=== PATIENT | male | born 1980 | race Two or more races ===

== ENCOUNTER 2019-12-13 16:21 | Emergency (ER) | payer MEDICAID, SELFPAY ==
[~2019-12-13] VITALS: Ht 175.3 cm; Wt 127.3 kg
[2019-12-13 16:30] VITALS: BP 148/101
== END 2019-12-13 16:44 | disposition home or self-care (01) ==
LOC: ER 16:22
DX: J02.9 Acute pharyngitis, unspecified (principal); Z20.828 Contact with and (suspected) exposure to other viral communicable diseases
CPT/HCPCS: 36415; 99281

== ENCOUNTER 2021-01-30 15:40 | Inpatient (IN) | payer MEDICAID, OTHER ==
[~2021-01-30] VITALS: Ht 180.3 cm; Wt 96.8 kg
[2021-01-30 16:11] LABS: CLARITY,URINE SLIGHTLY CLOUDY (Clear); COLOR,URINE YELLOW (Yellow); GLUCOSE, URINE 100 mg/dl (Neg); KETONES,URINE TRACE mg/dl (Neg); LEUKOCYTE ESTERASE ,URINE NEGATIVE (Neg); NITRITES, URINE NEGATIVE (Neg); OCCULT BLOOD,URINE TRACE-INTACT (Neg); PH,URINE 6.5 (4.8-8.0); PROTEIN,URINE NEGATIVE (Neg); UROBILINOGEN,URINE >=8.0 E.U/dL (0.2-1.0)
[2021-01-30 16:17] LABS: UA COLLECTION TYPE VOIDED
[2021-01-30 16:17] LABS: BASOPHILS # (AUTO) 0.1 X10'3 (0-0.2); BASOPHILS % (AUTO) 0.4 % (0-1); EOSINOPHILS % (AUTO) 0 % (0-6); HEMOGLOBIN 10.3 g/dl (14.0-17.9); LYMPHOCYTES # (AUTO) 1.1 X10'3 (1.1-4.8); LYMPHOCYTES % (AUTO) 4.8 % (21-51); MEAN CORPUSCULAR HEMOGLOBIN 24.9 PG (27.0-31.0); MEAN CORPUSCULAR HGB CONC 33.3 g/dL (33.0-36.5); MEAN CORPUSCULAR VOLUME 74.8 FL (78-98); MEAN PLATELET VOLUME 7.1 FL (7.4-10.4); MONOCYTES # (AUTO) 1.1 X10'3 (0-0.9); MONOCYTES % (AUTO) 4.8 % (2-12); NEUTROPHILS # (AUTO) 20.8 X10'3 (1.8-7.7); PLATELET COUNT 514 X10'3 (140-440); RED BLOOD COUNT 4.14 X10'6 (4.70-6.10); RED CELL DISTRIBUTION WIDTH 15.2 % (11.5-14.5); WHITE BLOOD COUNT 23.1 X10'3 (4.5-11.0)
[2021-01-30 16:18] LABS: MUCUS STRANDS FEW /LPF (Neg); SQUAMOUS EPITHELIAL CELL,UR FEW /LPF (FEW)
[2021-01-30 16:20] LABS: HYALINE CASTS 0-3 /LPF (NEGATIVE)
[2021-01-30 16:21] LABS: WBC,URINE 0-4 /HPF (0-4)
[2021-01-30 16:22] LABS: ALANINE AMINOTRANSFERASE 29 U/L (12-78); ALBUMIN 2.5 G/DL (3.4-5.0); ALBUMIN/GLOBULIN RATIO 0.4 (1.1-1.5); ALKALINE PHOSPHATASE 126 IU/L (46-116); ANION GAP 10 (8-16); ASPARTATE AMINO TRANSFERASE 23 U/L (10-37); BILIRUBIN,TOTAL 0.5 MG/DL (0.1-1.0); BLOOD UREA NITROGEN 13 MG/DL (7-18); BUN/CREATININE RATIO 15.9 (5.4-32.0); CALCIUM 8.8 MG/DL (8.5-10.1); CHLORIDE 101 MMOL/L (99-107); CREATININE 0.82 MG/DL (0.60-1.10); GLUCOSE 196 MG/DL (70-104); SODIUM 137 MMOL/L (135-145); TOTAL CARBON DIOXIDE 25.6 MMOL/L (24-32); TOTAL PROTEIN 8.5 G/DL (6.4-8.2); eGFR > 90 ML/MIN
[2021-01-30 16:22] LABS: BACTERIA,URINE FEW /HPF (Neg)
[2021-01-30 16:24] LABS: TRANSITIONAL EPI CELLS,URINE FEW /HPF
[2021-01-30 16:26] LABS: POTASSIUM 2.8 MMOL/L (3.5-5.1)
[2021-01-30] MEDS ORDERED: ondansetron/PF 4mg/2ml inj IV ONE (17:15)
[2021-01-30] MEDS ORDERED: fentaNYL/PF 50MCG/1 ML 2ML syringe IV ONE (17:15)
[2021-01-30] MEDS ORDERED: diazepam inj 5 MG/ML inj. IV ONE (17:15)
[2021-01-30] MEDS ORDERED: potassium Cl 20 mEq SR tablet PO ONE (17:25)
[2021-01-30] MEDS ORDERED: potassium Cl 40 mEq/0.45% sodium chloride IV soln 520ml IV ONE (17:25)
[2021-01-30] MEDS ORDERED: iohexol 300mg/ml 100ml inj. ONE (17:30)
[2021-01-30] MEDS: potassium Cl 10 mEq/100mL bag IV SCH ×4 (17:40→22:06)
[2021-01-30] MEDS: magnesium 2GM in 50ml NS 50 ML IV SCH ×2 (17:57→20:27)
[2021-01-30] MEDS ORDERED: HYDROmorphone 1 mg/ml syringe IV PRN (18:15)
[2021-01-30] MEDS ORDERED: normal saline 1000ML IV soln IV ONE (18:25)
[2021-01-30] MEDS ORDERED: piperacillin/tazo 3.375gm/50ml 50 ML IV ONE (18:25)
[2021-01-30] MEDS ORDERED: vancomycin/NS 1 GM ADD-VANTAGE 250 ML IV ONE (18:25)
[2021-01-30] MEDS ORDERED: dexamethasone sod phosphate 10mg/ml inj IV STA (20:18)
[2021-01-30] MEDS ORDERED: magnesium Cl slow-release 64mg tablet PO PRN (21:35)
[2021-01-30] MEDS ORDERED: acetaminophen 325mg tablet PO PRN ×2 (21:35)
[2021-01-30] MEDS ORDERED: magnesium 2GM in 50ml NS 50 ML IV PRN (21:35)
[2021-01-30] MEDS ORDERED: morphine 2 MG/ML inj. syringe IV PRN (21:35)
[2021-01-30] MEDS ORDERED: potassium Cl 20 mEq SR tablet PO PRN ×2 (21:35)
[2021-01-30] MEDS ORDERED: HYDROcodone/acetaminophen 5mg/325mg tablet PO PRN (21:35)
[2021-01-30] MEDS ORDERED: potassium CL 10mEq/100ml bag 100 ML IV PRN (21:35)
[2021-01-30] MEDS ORDERED: HYDROmorphone/PF 0.2 MG/ML SYRINGE IV PRN (21:35)
[2021-01-30] MEDS ORDERED: ondansetron/PF 4mg/2ml inj IV PRN (21:35)
[2021-01-30] MEDS ORDERED: magnesium 4gm in 100ml NS 100 ML IV PRN (21:35)
[2021-01-30 21:49] LABS: HEMOGLOBIN A1C 6.7 % (4.5-6.2)
[2021-01-30] MEDS ORDERED: dextrose 50%-water 50ml dispensing syringe IV PRN ×2 (22:15)
[2021-01-30] MEDS ORDERED: MESSAGE TO PHARMACY PO ONE (22:15)
[2021-01-30] MEDS ORDERED: vancomycin/NS 1 GM ADD-VANTAGE 250 ML X 1 DOSE IV ONE (22:15)
[2021-01-30] MEDS ORDERED: glucagon, human recombinant 1mg kit SUBCUT PRN (22:15)
[2021-01-30] MEDS ORDERED: dextrose ORAL solution 15 GM/59 ML bottle PO PRN ×2 (22:15)
--- NOTE | 2021-01-30 22:40 | NUR ---
Patient in ER bed 2. I have received report from Len SMITH and had the opportunity to ask questions and assume patient care.
[2021-01-30 22:48] LABS: CHOL/HDL RATIO 6.1 (0.00-4.99); CHOLESTEROL 129 MG/DL (0-200); HDL CHOLESTEROL 21 MG/DL (35-60); LDL CHOLESTEROL 91 MG/DL (50-100); TRIGLYCERIDES 72 MG/DL (20-135)
[2021-01-30 23:00] VITALS: BP 130/73
[2021-01-30 23:21] LABS: POTASSIUM 3.7 MMOL/L (3.5-5.1)
[2021-01-30] MEDS: normal saline 1000ml 1,000 ML IV SCH (23:46)
[2021-01-31] VITALS (26 sets, daily range): BP systolic 114–152; BP diastolic 55–88
[2021-01-31] MEDS ORDERED: dexamethasone 4mg/ml inj IV SCH
[2021-01-31] MEDS: morphine 2 MG/ML inj. syringe IV PRN ×2 (00:07→21:02)
[2021-01-31] MEDS ORDERED: NO HOME MEDS (00:46)
[2021-01-31] MEDS: dexamethasone inj 6 MG in normal saline 50ml IV soln 50 ML IV SCH ×3 (01:37→19:20)
[2021-01-31] MEDS: heparin, porcine 5000 units/ml vial SQ SCH ×3 (01:37→19:20)
[2021-01-31] MEDS: piperacillin/tazo 3.375gm/50ml 50 ML IV SCH ×3 (02:08→19:20)
--- NOTE | 2021-01-31 06:40 | NUR ---
Problems reprioritized. Patient report given, questions answered & plan of care reviewed with Katrina SMITH.
--- NOTE | 2021-01-31 06:46 | NUR ---
Patient in room ORTHO 4017. I have received report from LUIS VO and had the opportunity to ask questions and assume patient care.
[2021-01-31] MEDS: pantoprazole 40mg Tablet.DR PO SCH (07:13)
[2021-01-31] MEDS: vancomycin/NS 1 GM ADD-VANTAGE 250 ML IV SCH ×3 (07:16→22:39)
[2021-01-31 07:24] LABS: BASOPHILS % (AUTO) 0 % (0-1); EOSINOPHILS % (AUTO) 0 % (0-6); HEMATOCRIT 29.3 % (42.0-52.0); HEMOGLOBIN 9.8 g/dl (14.0-17.9); LYMPHOCYTES # (AUTO) 0.7 X10'3 (1.1-4.8); LYMPHOCYTES % (AUTO) 3.3 % (21-51); MEAN CORPUSCULAR HEMOGLOBIN 25.2 PG (27.0-31.0); MEAN CORPUSCULAR HGB CONC 33.4 g/dL (33.0-36.5); MEAN CORPUSCULAR VOLUME 75.4 FL (78-98); MEAN PLATELET VOLUME 7.2 FL (7.4-10.4); MONOCYTES # (AUTO) 0.5 X10'3 (0-0.9); MONOCYTES % (AUTO) 2.3 % (2-12); NEUTROPHILS # (AUTO) 19.8 X10'3 (1.8-7.7); NEUTROPHILS % (AUTO) 94.4 % (42-75); PLATELET COUNT 461 X10'3 (140-440); RED BLOOD COUNT 3.89 X10'6 (4.70-6.10); RED CELL DISTRIBUTION WIDTH 15.4 % (11.5-14.5)
[2021-01-31] MEDS: normal saline 1000ml 1,000 ML IV SCH ×2 (07:35→21:02)
[2021-01-31 07:49] LABS: ALANINE AMINOTRANSFERASE 24 U/L (12-78); ALBUMIN 2.1 G/DL (3.4-5.0); ALBUMIN/GLOBULIN RATIO 0.4 (1.1-1.5); ALKALINE PHOSPHATASE 106 IU/L (46-116); ANION GAP 7 (8-16); ASPARTATE AMINO TRANSFERASE 19 U/L (10-37); BILIRUBIN,TOTAL 0.4 MG/DL (0.1-1.0); BLOOD UREA NITROGEN 14 MG/DL (7-18); BUN/CREATININE RATIO 17.5 (5.4-32.0); CALCIUM 9.1 MG/DL (8.5-10.1); CHLORIDE 103 MMOL/L (99-107); GLUCOSE 201 MG/DL (70-104); POTASSIUM 4.1 MMOL/L (3.5-5.1); SODIUM 136 MMOL/L (135-145); TOTAL CARBON DIOXIDE 26.2 MMOL/L (24-32); TOTAL PROTEIN 7.8 G/DL (6.4-8.2); eGFR > 90 ML/MIN
[2021-01-31] MEDS: K and/or MAG REPLACEMENT MC SCH ×2 (08:00→20:00)
--- NOTE | 2021-01-31 11:30 | NUR ---
pt left floor to go to IR in stable condition
[2021-01-31] MEDS ORDERED: fentaNYL/PF 50MCG/1 ML 2ML syringe ONE ×4 (11:32→18:08)
--- NOTE | 2021-01-31 11:56 | NUR ---
Malnutrition/DM Consults: Pt admit w/ increasing back pain 4 days [employer]ICAL [employer] DX COVID-19, new onset DM A1C 6.7%, sepsis, rectal CA w/ mets to liver/lungs, multiple pelvic abscesses, sigmoid diverticula, and bowel perforation per MD note. Pt NPO for OR this AM pending colostomy per EMR. Pt reports 14-23 pound wt loss past 3 months w/ decreased appetite past week per RN Malnutrition Screen this admit. Possible decreased PO intake given DX this admit and hx pain MEDICAL DEVICE SALES however pt has normal strength, no edema, appears WD/WN per ER note, and current scaled wt no significant loss compared to last December ER visit wt in EMR. Pt lacks minimum malnutrition criteria at this time. LBM 01/30 per EMR. Pt would benefit from DM/Colostomy diet eds once more appropriate post-op. Will monitor for diet advancement post-op and further nutrition intervention needs this admit. Rec: 1. advance diet as medically indicated post-op to low-residue 2. If prolonged intubation post-op; consider EN to optimize nutrition status IF functional colostomy per surgeon discretion 3. weekly wts 4. bowel care per MD post-op 5. DM/Colostomy diet eds once appropriate prior to discharge following pt aware of new DM DX by physician A1C 6.7% Addendum: 01/31/21 at [address] Amended: Links added.
[2021-01-31] MEDS ORDERED: midazolam 1 mg/ML 2ml injection ONE (12:05)
[2021-01-31] MEDS ORDERED: BUPIVAcaine/PF 2.5 mg/ml (0.25%) 30ml vial ONE (12:34)
[2021-01-31] MEDS ORDERED: LIDOCAINE 1%/EPI 1:100,000 inj. 10 ML multi-dose vial ONE (12:35)
[2021-01-31] MEDS ORDERED: CefTRIAXone 2gm/D5W 50ml IV ONE (12:45)
[2021-01-31] MEDS ORDERED: metroNIDAZOLE-Flagyl 500mg/NS 100ml IVPB IV ONE (12:45)
--- NOTE | 2021-01-31 12:49 | NUR ---
pt back from IR in stable condition with left lower abd AMARJIT drain
[2021-01-31] MEDS ORDERED: morphine 4 MG/ML inj SYRINge IV PRN (13:20)
[2021-01-31] MEDS ORDERED: labetalol 20mg/4ml (5mg/ml) syringe IV PRN (13:20)
[2021-01-31] MEDS ORDERED: ringers solution, lacted 1,000 ML IV SCH (13:20)
[2021-01-31] MEDS ORDERED: hydrALAZINE 20mg/ml inj. IV PRN (13:20)
[2021-01-31] MEDS ORDERED: fentaNYL/PF 50MCG/1 ML 2ML syringe IV PRN ×2 (13:20)
[2021-01-31] MEDS ORDERED: ondansetron/PF 4mg/2ml inj IV PRN (13:20)
[2021-01-31] MEDS ORDERED: morphine 2 MG/ML inj. syringe IV PRN (13:20)
[2021-01-31] MEDS ORDERED: propofol inj 20 ML IV ONE (13:26)
[2021-01-31] MEDS ORDERED: dexamethasone sod phosphate 4mg/ml inj. ONE (13:26)
[2021-01-31] MEDS ORDERED: neostigmine methylsulfate 1 MG/ML 10ml vial ONE (13:29)
[2021-01-31] MEDS ORDERED: glycopyrrolate 0.2mg/ml inj ONE (13:29)
[2021-01-31] MEDS ORDERED: rocuronium 10mg/ml inj IV ONE ×3 (13:29)
[2021-01-31] MEDS ORDERED: ondansetron/PF 4mg/2ml inj ONE (13:31)
[2021-01-31] MEDS ORDERED: MIDAZolam 1 MG/ML 5ML VIAL ONE (13:32)
[2021-01-31] MEDS ORDERED: sugammadex 200mg/2ml injection IV ONE (14:13)
--- NOTE | 2021-01-31 17:10 | NUR ---
PT RECOVERED IN OR D/T +MIHIR, DR CISSE PRESENT-REPORT GIVEN, VSS, PT DENIES PAIN AT PRESENT, NOTED TO ABDIRASHID CT PLACED AMARJIT DRAIN TO LLQ WITH PURULENT DRAINAGE NOTED, AMARJIT RLQ WITH BRIGHT RED DRAINAGE, COLOSTOMY BAG OVER STOMA LEFT OF MIDLINE-SMALL AMOUNT OF BLOOD IN BAG, F/C PRESENT PLACED IN OR, SCDS ON, PICC TO RUE, 18G PIV TO BUE.
[2021-01-31] MEDS ORDERED: morphine 4 MG/ML inj SYRINge ONE (17:48)
--- NOTE | 2021-01-31 18:26 | NUR ---
Problems reprioritized. Patient report given, questions answered & plan of care reviewed with LUIS Burgess.
--- NOTE | 2021-01-31 18:30 | NUR ---
PT GIVEN MORPHINE AND FENTANYL PER ORDER-MEDS PULLED BY NUCLEAR UNIT OPERATOR VANDA FROM OR SUPPLY, PT PAIN DROPPED FROM 8 TO 5/10 WITH PAIN MOSTLY BEING WHEN PT TRIED TO CLEAR THROAT/COUGH-EDUCATED ON NEED TO SPLINT WITH PILLOW, AMARJIT'S EMPTIED(LEFT 40CC, RIGHT 30CC), NO CHANGES IN ASSESSMENT FROM PRIOR NOTE, REPORT CALLED TO GILDA IN COVID UNIT-ALL QUESTIONS ANSWERED, PT TAKEN VIA BED PER ISOLATION STANDARDS BACK TO ROOM 4017, PRIMARY RN IN ROOM TO RECEIVE PT.
--- NOTE | 2021-01-31 18:44 | NUR ---
Patient in room ORTHO 4017. I have received report from Katrina SMITH and had the opportunity to ask questions and assume patient care.
--- NOTE | 2021-01-31 19:00 | NUR ---
Report received from Monserrat BAILEY RN. Pt arrived via bed in no apparent distress. Post op vitals started. Pt is on 2L NC at 96%. Will continue to monitor.
--- NOTE | 2021-01-31 19:21 | NUR ---
Spoke with keegan Matthews to non admin the dose of Rocephin and flagyl that he ordered for 1245. Also non admin the medications that were due while he was in the OR.
[2021-01-31] MEDS: insulin glargine (Lantus) pen - multi-dose SQ SCH (21:00)
[2021-01-31] MEDS ORDERED: VANCOMYCIN LEVEL IV ONE (21:30)
[2021-01-31] MEDS: HYDROmorphone inj. 0.5 MG/0.5 ML DISP.SYRIN IV PRN (23:04)
[2021-02-01] MEDS: dexamethasone inj 6 MG in normal saline 50ml IV soln 50 ML IV SCH ×3 (01:12→17:32)
[2021-02-01] MEDS: heparin, porcine 5000 units/ml vial SQ SCH ×3 (01:13→17:31)
[2021-02-01 02:00] VITALS: BP 108/60
[2021-02-01] MEDS: piperacillin/tazo 3.375gm/50ml 50 ML IV SCH ×3 (02:02→17:32)
[2021-02-01] MEDS: normal saline 1000ml 1,000 ML IV SCH ×3 (05:23→23:35)
[2021-02-01] MEDS: vancomycin/NS 1 GM ADD-VANTAGE 250 ML IV SCH (05:26)
[2021-02-01] MEDS: HYDROmorphone inj. 0.5 MG/0.5 ML DISP.SYRIN IV PRN ×3 (05:27→19:59)
[2021-02-01 06:00] VITALS: BP 115/63
--- NOTE | 2021-02-01 06:33 | NUR ---
Problems reprioritized. Patient report given, questions answered & plan of care reviewed with Katrina SMITH.
--- NOTE | 2021-02-01 06:48 | NUR ---
Patient in room ORTHO 4017. I have received report from LUIS Burgess and had the opportunity to ask questions and assume patient care.
[2021-02-01] MEDS: pantoprazole 40mg Tablet.DR PO SCH (07:51)
[2021-02-01] MEDS: K and/or MAG REPLACEMENT MC SCH ×2 (08:00→19:22)
[2021-02-01 08:05] LABS: BASOPHILS % (AUTO) 0 % (0-1); EOSINOPHILS % (AUTO) 0 % (0-6); HEMATOCRIT 29.4 % (42.0-52.0); HEMOGLOBIN 9.3 g/dl (14.0-17.9); LYMPHOCYTES # (AUTO) 0.6 X10'3 (1.1-4.8); LYMPHOCYTES % (AUTO) 2.9 % (21-51); MEAN CORPUSCULAR HEMOGLOBIN 24.4 PG (27.0-31.0); MEAN CORPUSCULAR HGB CONC 31.7 g/dL (33.0-36.5); MEAN CORPUSCULAR VOLUME 76.8 FL (78-98); MEAN PLATELET VOLUME 7.5 FL (7.4-10.4); MONOCYTES # (AUTO) 0.5 X10'3 (0-0.9); MONOCYTES % (AUTO) 2.3 % (2-12); NEUTROPHILS # (AUTO) 19.2 X10'3 (1.8-7.7); NEUTROPHILS % (AUTO) 94.8 % (42-75); PLATELET COUNT 485 X10'3 (140-440); RED BLOOD COUNT 3.83 X10'6 (4.70-6.10); RED CELL DISTRIBUTION WIDTH 15.7 % (11.5-14.5); WHITE BLOOD COUNT 20.3 X10'3 (4.5-11.0)
[2021-02-01 08:23] LABS: ALANINE AMINOTRANSFERASE 19 U/L (12-78); ALBUMIN 1.8 G/DL (3.4-5.0); ALBUMIN/GLOBULIN RATIO 0.3 (1.1-1.5); ALKALINE PHOSPHATASE 95 IU/L (46-116); ANION GAP 7 (8-16); ASPARTATE AMINO TRANSFERASE 14 U/L (10-37); BILIRUBIN,TOTAL 0.4 MG/DL (0.1-1.0); BLOOD UREA NITROGEN 21 MG/DL (7-18); BUN/CREATININE RATIO 28.8 (5.4-32.0); CALCIUM 8.8 MG/DL (8.5-10.1); CHLORIDE 106 MMOL/L (99-107); CREATININE 0.73 MG/DL (0.60-1.10); GLUCOSE 173 MG/DL (70-104); SODIUM 139 MMOL/L (135-145); TOTAL CARBON DIOXIDE 26.1 MMOL/L (24-32); TOTAL PROTEIN 7.2 G/DL (6.4-8.2); eGFR > 90 ML/MIN
[2021-02-01 10:00] VITALS: BP 102/66
[2021-02-01 10:04] LABS: C-REACTIVE PROTEIN 23.28 MG/DL (0.0-0.5)
[2021-02-01] MEDS: insulin Lispro (HumaLOG) vial - multi-dose SQ SCH ×3 (10:26→18:56)
[2021-02-01 14:00] VITALS: BP 107/67
--- NOTE | 2021-02-01 14:42 | NUR ---
Pt was educated on emptying bag, cutting and applying bag, measuring stoma, rolling back Formaflex bags, 2 piece bags, 1 piece bags, basic ostomy care and bag change. He was attentive to teaching and verbalized understanding but will need reinforcement. He was give various written education as well. Addendum: 02/01/21 at 1442 by Ana María Muhammad RN Amended: Links added.
--- NOTE | 2021-02-01 14:48 | NUR ---
TPN consult: Pt s/p laparoscopic diverting colostomy, drainage of pelvic abscess, liver biopsy, and sigmoidoscopy 01/31. Pt to begin TPN per MD, already with a PICC in place per EMR. TPN recommendations below have been d/w clinical pharmacist. Of note pt also on a full liquid diet. Will continue to follow and monitor trends in PO intake and adjust TPN recommendations as appropriate. Recommendations: 1. Advance to low fiber diet as medically indicated 2. Continuous TPN per MD using 2:1 Clinimix-E 06/29 with 108 mL/hr goal with additional 100 mL 20% intralipids to run at 8.33 mL/hr for 12 hrs/day. In total to provide 2692 mL total volume/day, 2481 kcal, 130 g protein, and 518 g dext (3.00 mg/kg/min dext load) 3. Prealbumin and TG q Friday/ 4. Daily scaled weights 5. Consider transitioning to EN IF able to use GI tract per surgeon discretion 6. Bowel care per MD post-op 7. DM/Colostomy nutrition therapy educations once appropriate prior to discharge following pt aware of new DM DX by physician A1C 6.7% Addendum: 02/01/21 at [address] Amended: Links added.
[2021-02-01] MEDS: VANCOmycin 1250MG/NS 250ml Bag 250 ML IV SCH ×2 (15:09→21:47)
[2021-02-01] MEDS: HYDROcodone/acetaminophen 10/325mg tab PO PRN (15:11)
[2021-02-01] MEDS ORDERED: Dextrose 10%-water IV solution 1,000 ML IV PRN (15:20)
[2021-02-01 16:24] LABS: MAGNESIUM 2.4 MG/DL (1.5-2.4); PHOSPHORUS 3.9 MG/DL (2.3-4.5)
[2021-02-01 18:00] VITALS: BP 121/76
--- NOTE | 2021-02-01 18:31 | NUR ---
Problems reprioritized. Patient report given, questions answered & plan of care reviewed with LUIS RUTH.
--- NOTE | 2021-02-01 18:37 | NUR ---
Patient in room ORTHO 4017. I have received report from LUIS BRADEN and had the opportunity to ask questions and assume patient care.
[2021-02-01 18:45] LABS: PREALBUMIN 6.4 MG/DL (19-36)
[2021-02-01] MEDS: fat emulsion 20% inj. 100 ML IV SCH (19:53)
[2021-02-01] MEDS ORDERED: ZINC/COPPER/MANGANESE/SELENIUM 0.5 ML, chromic chloride inj. 5 MCG in AA 5%/CALCIUM/LYT... IV SCH ×6 (20:00)
[2021-02-01] MEDS: insulin glargine (Lantus) pen - multi-dose SQ SCH (20:52)
[2021-02-01 22:00] VITALS: BP 119/82
[2021-02-02] MEDS: dexamethasone inj 6 MG in normal saline 50ml IV soln 50 ML IV SCH ×4 (00:01→23:35)
[2021-02-02] MEDS: piperacillin/tazo 3.375gm/50ml 50 ML IV SCH ×3 (00:02→17:26)
[2021-02-02] MEDS: heparin, porcine 5000 units/ml vial SQ SCH ×4 (00:02→23:34)
[2021-02-02] MEDS: HYDROcodone/acetaminophen 10/325mg tab PO PRN ×4 (00:08→23:34)
[2021-02-02 02:00] VITALS: BP 105/64
[2021-02-02] MEDS: insulin regular, human U-100 3ml vial - multi-dose SQ SCH ×4 (02:12→20:14)
[2021-02-02] MEDS: normal saline 1000ml 1,000 ML IV SCH ×2 (05:35→23:34)
[2021-02-02] MEDS: HYDROmorphone inj. 0.5 MG/0.5 ML DISP.SYRIN IV PRN ×2 (05:36→17:25)
[2021-02-02] MEDS: VANCOmycin 1250MG/NS 250ml Bag 250 ML IV SCH ×2 (05:36→14:31)
[2021-02-02 06:00] VITALS: BP 113/67
--- NOTE | 2021-02-02 06:28 | NUR ---
Problems reprioritized. Patient report given, questions answered & plan of care reviewed with LUIS Herndon.
--- NOTE | 2021-02-02 06:35 | NUR ---
Patient in room ORTHO 4017. I have received report from LUIS Jacinto and had the opportunity to ask questions and assume patient care.
[2021-02-02] MEDS: K and/or MAG REPLACEMENT MC SCH ×2 (08:00→20:00)
[2021-02-02] MEDS: pantoprazole 40mg Tablet.DR PO SCH (08:22)
[2021-02-02 09:10] LABS: BASOPHILS % (AUTO) 0.1 % (0-1); EOSINOPHILS % (AUTO) 0 % (0-6); HEMATOCRIT 28.8 % (42.0-52.0); HEMOGLOBIN 9.2 g/dl (14.0-17.9); LYMPHOCYTES # (AUTO) 0.9 X10'3 (1.1-4.8); LYMPHOCYTES % (AUTO) 6.4 % (21-51); MEAN CORPUSCULAR HEMOGLOBIN 24.6 PG (27.0-31.0); MEAN CORPUSCULAR VOLUME 76.8 FL (78-98); MEAN PLATELET VOLUME 7.7 FL (7.4-10.4); MONOCYTES # (AUTO) 0.6 X10'3 (0-0.9); MONOCYTES % (AUTO) 4.5 % (2-12); PLATELET COUNT 433 X10'3 (140-440); RED BLOOD COUNT 3.74 X10'6 (4.70-6.10); RED CELL DISTRIBUTION WIDTH 15.8 % (11.5-14.5); WHITE BLOOD COUNT 13.5 X10'3 (4.5-11.0)
[2021-02-02 09:29] LABS: ALANINE AMINOTRANSFERASE 21 U/L (12-78); ALBUMIN 1.8 G/DL (3.4-5.0); ALBUMIN/GLOBULIN RATIO 0.3 (1.1-1.5); ALKALINE PHOSPHATASE 89 IU/L (46-116); ANION GAP 4 (8-16); ASPARTATE AMINO TRANSFERASE 13 U/L (10-37); BILIRUBIN,TOTAL 0.2 MG/DL (0.1-1.0); BLOOD UREA NITROGEN 20 MG/DL (7-18); C-REACTIVE PROTEIN 14.03 MG/DL (0.0-0.5); CALCIUM 8.6 MG/DL (8.5-10.1); CHLORIDE 105 MMOL/L (99-107); CREATININE 0.69 MG/DL (0.60-1.10); GLUCOSE 164 MG/DL (70-104); MAGNESIUM 2.4 MG/DL (1.5-2.4); PHOSPHORUS 4.1 MG/DL (2.3-4.5); POTASSIUM 4.2 MMOL/L (3.5-5.1); SODIUM 138 MMOL/L (135-145); TOTAL CARBON DIOXIDE 28.7 MMOL/L (24-32); TOTAL PROTEIN 7.2 G/DL (6.4-8.2); eGFR > 90 ML/MIN
[2021-02-02 10:00] VITALS: BP 113/69
[2021-02-02] MEDS: MVI, adult No.4 with vit. K 10 ML in dextrose 5% water 500ml 500 ML IV SCH ×2 (10:14)
[2021-02-02] MEDS ORDERED: VANCOMYCIN LEVEL IV ONE (13:30)
[2021-02-02] MEDS: polyethylene glycol 3350 17gm powd pack PO SCH ×3 (13:56→20:10)
[2021-02-02 14:00] VITALS: BP 120/69
[2021-02-02] MEDS: ZINC/COPPER/MANGANESE/SELENIUM 0.5 ML, chromic chloride inj. 5 MCG in AA 5%/CALCIUM/LYT... IV SCH ×2 (14:55→23:37)
[2021-02-02] MEDS ORDERED: ZINC/COPPER/MANGANESE/SELENIUM 0.5 ML, chromic chloride inj. 5 MCG in AA 5%/CALCIUM/LYT... IV SCH (17:00)
[2021-02-02 18:00] VITALS: BP 116/59
--- NOTE | 2021-02-02 18:40 | NUR ---
Patient in room ORTHO 4017. I have received report from LUIS Herndon and had the opportunity to ask questions and assume patient care.
--- NOTE | 2021-02-02 18:41 | NUR ---
Problems reprioritized. Patient report given, questions answered & plan of care reviewed with LUIS RUTH.
[2021-02-02] MEDS: levoFLOXACIN-Levaquin 500mg/D5 100 ML IV SCH (19:35)
[2021-02-02] MEDS: fat emulsion 20% inj. 100 ML IV SCH (20:09)
[2021-02-02] MEDS: lactobacillus rhamnosus 10,000 MMU CELLS/CAPSULE PO SCH (20:10)
[2021-02-02] MEDS: insulin glargine (Lantus) pen - multi-dose SQ SCH (21:20)
[2021-02-02 22:00] VITALS: BP 119/65
[2021-02-03 02:00] VITALS: BP 118/69
[2021-02-03] MEDS: insulin regular, human U-100 3ml vial - multi-dose SQ SCH ×4 (02:09→20:13)
[2021-02-03] MEDS: HYDROmorphone inj. 0.5 MG/0.5 ML DISP.SYRIN IV PRN ×2 (05:11→23:28)
[2021-02-03 05:32] LABS: BASOPHILS % (AUTO) 0.1 % (0-1); EOSINOPHILS % (AUTO) 0 % (0-6); HEMATOCRIT 30.4 % (42.0-52.0); HEMOGLOBIN 9.7 g/dl (14.0-17.9); LYMPHOCYTES # (AUTO) 0.8 X10'3 (1.1-4.8); LYMPHOCYTES % (AUTO) 6.3 % (21-51); MEAN CORPUSCULAR HEMOGLOBIN 24.5 PG (27.0-31.0); MEAN CORPUSCULAR VOLUME 76.7 FL (78-98); MEAN PLATELET VOLUME 7.4 FL (7.4-10.4); MONOCYTES # (AUTO) 0.6 X10'3 (0-0.9); MONOCYTES % (AUTO) 4.8 % (2-12); NEUTROPHILS # (AUTO) 11.8 X10'3 (1.8-7.7); NEUTROPHILS % (AUTO) 88.8 % (42-75); PLATELET COUNT 426 X10'3 (140-440); RED BLOOD COUNT 3.97 X10'6 (4.70-6.10); RED CELL DISTRIBUTION WIDTH 15.3 % (11.5-14.5); WHITE BLOOD COUNT 13.3 X10'3 (4.5-11.0)
[2021-02-03] MEDS: normal saline 1000ml 1,000 ML IV SCH ×3 (05:35→21:16)
[2021-02-03 05:46] LABS: ALANINE AMINOTRANSFERASE 31 U/L (12-78); ALBUMIN 1.9 G/DL (3.4-5.0); ALBUMIN/GLOBULIN RATIO 0.4 (1.1-1.5); ALKALINE PHOSPHATASE 91 IU/L (46-116); ANION GAP 6 (8-16); ASPARTATE AMINO TRANSFERASE 22 U/L (10-37); BILIRUBIN,TOTAL 0.2 MG/DL (0.1-1.0); BLOOD UREA NITROGEN 16 MG/DL (7-18); BUN/CREATININE RATIO 25.4 (5.4-32.0); C-REACTIVE PROTEIN 7.53 MG/DL (0.0-0.5); CALCIUM 9.2 MG/DL (8.5-10.1); CHLORIDE 106 MMOL/L (99-107); CREATININE 0.63 MG/DL (0.60-1.10); GLUCOSE 168 MG/DL (70-104); MAGNESIUM 2.2 MG/DL (1.5-2.4); PHOSPHORUS 3.9 MG/DL (2.3-4.5); POTASSIUM 4.2 MMOL/L (3.5-5.1); SODIUM 141 MMOL/L (135-145); TOTAL CARBON DIOXIDE 28.7 MMOL/L (24-32); TOTAL PROTEIN 7.2 G/DL (6.4-8.2); eGFR > 90 ML/MIN
--- NOTE | 2021-02-03 06:24 | NUR ---
Problems reprioritized. Patient report given, questions answered & plan of care reviewed with LUIS Blanco.
--- NOTE | 2021-02-03 06:31 | NUR ---
Patient in room ORTHO 4017. I have received report from Ophelia SMITH and had the opportunity to ask questions and assume patient care.
[2021-02-03 06:32] VITALS: BP 125/72
[2021-02-03] MEDS: dexamethasone inj 6 MG in normal saline 50ml IV soln 50 ML IV SCH ×3 (07:16→23:29)
[2021-02-03] MEDS: levoFLOXACIN-Levaquin 500mg/D5 100 ML IV SCH (07:16)
[2021-02-03] MEDS: K and/or MAG REPLACEMENT MC SCH ×2 (08:00→19:10)
[2021-02-03] MEDS: lactobacillus rhamnosus 10,000 MMU CELLS/CAPSULE PO SCH ×2 (08:01→20:03)
[2021-02-03] MEDS: heparin, porcine 5000 units/ml vial SQ SCH ×3 (08:01→23:28)
[2021-02-03] MEDS: polyethylene glycol 3350 17gm powd pack PO SCH ×4 (08:01→20:03)
[2021-02-03] MEDS: pantoprazole 40mg Tablet.DR PO SCH (08:01)
[2021-02-03] MEDS: HYDROcodone/acetaminophen 10/325mg tab PO PRN ×3 (09:23→19:04)
[2021-02-03] MEDS: ZINC/COPPER/MANGANESE/SELENIUM 0.5 ML, chromic chloride inj. 5 MCG in AA 5%/CALCIUM/LYT... IV SCH ×2 (10:05→20:03)
[2021-02-03 10:53] VITALS: BP 141/78
[2021-02-03 14:12] VITALS: BP 130/83
[2021-02-03 18:00] VITALS: BP 141/75
--- NOTE | 2021-02-03 18:18 | NUR ---
Patient in room ORTHO 4017. I have received report from Ophelia SMITH and had the opportunity to ask questions and assume patient care.
--- NOTE | 2021-02-03 18:24 | NUR ---
Patient in room ORTHO 4017. I have received report from LUIS Blanco and had the opportunity to ask questions and assume patient care.
[2021-02-03] MEDS: fat emulsion 20% inj. 100 ML IV SCH (20:03)
[2021-02-03] MEDS: insulin glargine (Lantus) pen - multi-dose SQ SCH (21:10)
[2021-02-03] MEDS ORDERED: VANCOMYCIN LEVEL IV ONE (21:30)
[2021-02-03 22:00] VITALS: BP 128/66
[2021-02-04 02:00] VITALS: BP 125/66
[2021-02-04] MEDS: insulin regular, human U-100 3ml vial - multi-dose SQ SCH ×4 (02:09→20:24)
[2021-02-04] MEDS: HYDROcodone/acetaminophen 10/325mg tab PO PRN ×3 (02:19→23:20)
[2021-02-04] MEDS: ZINC/COPPER/MANGANESE/SELENIUM 0.5 ML, chromic chloride inj. 5 MCG in AA 5%/CALCIUM/LYT... IV SCH ×3 (05:15→23:19)
[2021-02-04] MEDS: HYDROmorphone inj. 0.5 MG/0.5 ML DISP.SYRIN IV PRN ×3 (05:48→22:09)
[2021-02-04 06:00] VITALS: BP 135/80
--- NOTE | 2021-02-04 06:48 | NUR ---
Problems reprioritized. Patient report given, questions answered & plan of care reviewed with LUIS Holland.
[2021-02-04 07:13] LABS: BASOPHILS % (AUTO) 0.2 % (0-1); EOSINOPHILS % (AUTO) 0.1 % (0-6); HEMATOCRIT 34.5 % (42.0-52.0); HEMOGLOBIN 11.2 g/dl (14.0-17.9); LYMPHOCYTES # (AUTO) 1.3 X10'3 (1.1-4.8); LYMPHOCYTES % (AUTO) 7.1 % (21-51); MEAN CORPUSCULAR HEMOGLOBIN 24.9 PG (27.0-31.0); MEAN CORPUSCULAR HGB CONC 32.4 g/dL (33.0-36.5); MEAN CORPUSCULAR VOLUME 77.1 FL (78-98); MEAN PLATELET VOLUME 7.5 FL (7.4-10.4); MONOCYTES # (AUTO) 0.8 X10'3 (0-0.9); MONOCYTES % (AUTO) 4.4 % (2-12); NEUTROPHILS # (AUTO) 16.7 X10'3 (1.8-7.7); NEUTROPHILS % (AUTO) 88.2 % (42-75); PLATELET COUNT 546 X10'3 (140-440); RED BLOOD COUNT 4.47 X10'6 (4.70-6.10); RED CELL DISTRIBUTION WIDTH 15.4 % (11.5-14.5); WHITE BLOOD COUNT 18.9 X10'3 (4.5-11.0)
[2021-02-04 07:16] LABS: ALANINE AMINOTRANSFERASE 56 U/L (12-78); ALBUMIN/GLOBULIN RATIO 0.4 (1.1-1.5); ALKALINE PHOSPHATASE 102 IU/L (46-116); ANION GAP 8 (8-16); ASPARTATE AMINO TRANSFERASE 33 U/L (10-37); BILIRUBIN,TOTAL 0.2 MG/DL (0.1-1.0); BLOOD UREA NITROGEN 17 MG/DL (7-18); BUN/CREATININE RATIO 26.6 (5.4-32.0); C-REACTIVE PROTEIN 3.48 MG/DL (0.0-0.5); CALCIUM 9.3 MG/DL (8.5-10.1); CHLORIDE 103 MMOL/L (99-107); CREATININE 0.64 MG/DL (0.60-1.10); GLUCOSE 198 MG/DL (70-104); PHOSPHORUS 4.1 MG/DL (2.3-4.5); POTASSIUM 3.9 MMOL/L (3.5-5.1); SODIUM 140 MMOL/L (135-145); TOTAL CARBON DIOXIDE 28.9 MMOL/L (24-32); TOTAL PROTEIN 7.4 G/DL (6.4-8.2); eGFR > 90 ML/MIN
[2021-02-04] MEDS: K and/or MAG REPLACEMENT MC SCH ×2 (08:00→20:00)
[2021-02-04] MEDS: heparin, porcine 5000 units/ml vial SQ SCH ×2 (08:05→16:57)
[2021-02-04] MEDS: polyethylene glycol 3350 17gm powd pack PO SCH ×4 (08:05→20:34)
[2021-02-04] MEDS: lactobacillus rhamnosus 10,000 MMU CELLS/CAPSULE PO SCH ×2 (08:05→20:33)
[2021-02-04] MEDS: pantoprazole 40mg Tablet.DR PO SCH (08:05)
[2021-02-04] MEDS: levoFLOXACIN-Levaquin 500mg/D5 100 ML IV SCH (08:06)
[2021-02-04] MEDS: dexamethasone inj 6 MG in normal saline 50ml IV soln 50 ML IV SCH (08:06)
[2021-02-04 10:00] VITALS: BP 128/73
[2021-02-04 10:29] LABS: NUCLEATED RED BLOOD CELLS 1 /100WBC (0-0); TOTAL CELLS COUNTED 100
[2021-02-04 10:31] LABS: HYPOCHROMASIA 1+; MICROCYTOSIS 1+; PLATELET ESTIMATE INCREASED; POIKILOCYTOSIS FEW; POLYCHROMASIA FEW
[2021-02-04] MEDS: normal saline 1000ml 1,000 ML IV SCH ×2 (11:35→21:28)
[2021-02-04] MEDS ORDERED: diatr meglu/diatrizoate 30ml oral sol.-(3 dose) bottle PO SCH (12:00)
[2021-02-04] MEDS: metroNIDAZOLE 500mg tablet PO SCH ×2 (12:03→20:34)
--- NOTE | 2021-02-04 12:18 | NUR ---
PAGER ID: [phone] MESSAGE: [phone]. CT rescheduled CT for tomorrow since it was not a stat. They want to know if that is okay so we can move prep for over night. Thank you Amalia SMITH [phone]
--- NOTE | 2021-02-04 13:32 | NUR ---
PAGER ID: [phone] MESSAGE: [id number]. CT called and said they changed CT for tomorrow as it was not a stat. Is that okay? If so, so we can start prep over night and have patient NPO. Amalia SMITH [phone]
[2021-02-04 14:00] VITALS: BP 121/78
--- NOTE | 2021-02-04 17:09 | NUR ---
PAGER ID: [phone] MESSAGE: [phone]. CT called and said they changed CT for tomorrow as it was not a stat. Is that okay? If so, so we can start prep over night and have patient NPO. Amalia SMITH [phone]
--- NOTE | 2021-02-04 17:36 | NUR ---
Per Dr. Hernandez, patient can have CT done tomorrow and prep can start tonight. Patient will be NPO starting midnight. Patient checked for rectal BM, none observed. Colostomy emptied 3 times.
[2021-02-04 18:00] VITALS: BP 115/70
--- NOTE | 2021-02-04 18:23 | NUR ---
Problems reprioritized. Patient report given, questions answered & plan of care reviewed with Janina SMITH.
--- NOTE | 2021-02-04 18:37 | NUR ---
Patient in room ORTHO 4017. I have received report from OMARI SMITH and had the opportunity to ask questions and assume patient care.
[2021-02-04] MEDS: fat emulsion 20% inj. 100 ML IV SCH (20:34)
[2021-02-04] MEDS: insulin glargine (Lantus) pen - multi-dose SQ SCH (20:40)
[2021-02-04] MEDS: diatr meglu/diatrizoate 30ml oral sol.-(3 dose) bottle PO SCH (21:27)
[2021-02-04 22:00] VITALS: BP 127/77
--- NOTE | 2021-02-04 23:47 | NUR ---
RC'D ORDER TO INCREASE DILAUDID TO 1MG Q2HRS NEEDED FOR ABDOMINAL PAIN UNRELIEVED BY .5MG ORDERED
[2021-02-05] MEDS: diatr meglu/diatrizoate 30ml oral sol.-(3 dose) bottle PO SCH ×2 (00:37→03:28)
[2021-02-05] MEDS: heparin, porcine 5000 units/ml vial SQ SCH ×4 (00:37→22:57)
[2021-02-05] MEDS: HYDROmorphone 1 mg/ml syringe IV PRN ×4 (00:38→20:23)
[2021-02-05 02:00] VITALS: BP 103/68
[2021-02-05] MEDS: insulin regular, human U-100 3ml vial - multi-dose SQ SCH ×4 (02:11→21:37)
--- NOTE | 2021-02-05 03:02 | NUR ---
1MG DILAUDID GIVEN FOR ABDOMINAL PAIN 09/19, AND 2ND DOSE OF BOWEL PREP ORDERED. CHECKED OSTOMY BAG WAS NOTED FULL OF AIR, UPON INSPECTION, BAG FOUND TO BE DISCONNECTED FROM SNAP RING AND STOOL OOZING FROM BOTTOM WHERE . BAG REMOVED, STOOL CLEANED AWAY FROM SNAP RING, STOMA VISUALIZED AND NEW BAG PLACED. WILL CONTINUE TO MONITOR. PATIENT TOLERATED WELL AND STATED HIS PAIN IS WELL CONTROLLED WITH THE 1MG DILAUDID.
--- NOTE | 2021-02-05 03:11 | NUR ---
NOTED 3RD DOSE OF GASTROGRAPH TO BE ADM AT 0300. NOTES STATE PER DR. SANTANA, CT OF ABDOMEN CAN BE DONE TOMORROW (02/05) IN THE AM, BUT THIS WAS NOT CONVEYED TO RX SO DOSES WERE NOT CHANGED IN THE EMAR. SPOKE TO FRANCESCA IN CT. WILL ADMINISTER 5MG AT 0300, AND THE REMAINING DOSE OF 5MG WILL BE GIVEN PRIOR TO THE TEST AT 0700.
[2021-02-05 06:00] VITALS: BP 104/62
--- NOTE | 2021-02-05 06:33 | NUR ---
Problems reprioritized. Patient report given, questions answered & plan of care reviewed with ASIYA SMITH.
--- NOTE | 2021-02-05 06:41 | NUR ---
Patient in room ORTHO 4017. I have received report from LUIS Rao and had the opportunity to ask questions and assume patient care.
[2021-02-05] MEDS ORDERED: iohexol 300mg/ml 100ml inj. ONE (07:13)
[2021-02-05] MEDS: dexamethasone inj 6 MG in normal saline 50ml IV soln 50 ML IV SCH (07:21)
[2021-02-05] MEDS: HYDROcodone/acetaminophen 10/325mg tab PO PRN ×2 (07:27→13:27)
[2021-02-05] MEDS: normal saline 1000ml 1,000 ML IV SCH ×2 (07:35→20:24)
[2021-02-05] MEDS: K and/or MAG REPLACEMENT MC SCH ×2 (08:00→19:38)
[2021-02-05] MEDS: polyethylene glycol 3350 17gm powd pack PO SCH ×4 (08:32→19:39)
[2021-02-05] MEDS: lactobacillus rhamnosus 10,000 MMU CELLS/CAPSULE PO SCH ×2 (08:33→20:18)
[2021-02-05] MEDS: metroNIDAZOLE 500mg tablet PO SCH ×3 (08:34→20:18)
[2021-02-05] MEDS: pantoprazole 40mg Tablet.DR PO SCH (08:34)
[2021-02-05] MEDS: levoFLOXACIN-Levaquin 500mg/D5 100 ML IV SCH (08:37)
[2021-02-05] MEDS: ZINC/COPPER/MANGANESE/SELENIUM 0.5 ML, chromic chloride inj. 5 MCG in AA 5%/CALCIUM/LYT... IV SCH ×2 (08:38→17:16)
--- NOTE | 2021-02-05 09:22 | NUR ---
Page Sent PAGER ID: [phone] MESSAGE: ASIYA [id number]-RE: [id number] TAMAR BARILLAS..SHANNON WITH [employer] (VIRTUAL [employer]IOLAG[employer]) WOULD LIKE YOU TO CALL [phone] RE: IMER FROM THIS AM...THANK YOU
[2021-02-05 10:00] VITALS: BP 106/64
[2021-02-05 11:23] LABS: BASOPHILS % (AUTO) 0 % (0-1); EOSINOPHILS # (AUTO) 0.1 X10'3 (0-0.9); EOSINOPHILS % (AUTO) 0.3 % (0-6); HEMATOCRIT 38.8 % (42.0-52.0); HEMOGLOBIN 12.4 g/dl (14.0-17.9); LYMPHOCYTES # (AUTO) 1.2 X10'3 (1.1-4.8); LYMPHOCYTES % (AUTO) 5.8 % (21-51); MEAN CORPUSCULAR HEMOGLOBIN 24.9 PG (27.0-31.0); MEAN CORPUSCULAR HGB CONC 31.8 g/dL (33.0-36.5); MEAN CORPUSCULAR VOLUME 78.2 FL (78-98); MONOCYTES # (AUTO) 0.8 X10'3 (0-0.9); MONOCYTES % (AUTO) 3.6 % (2-12); NEUTROPHILS # (AUTO) 19.4 X10'3 (1.8-7.7); NEUTROPHILS % (AUTO) 90.3 % (42-75); PLATELET COUNT 465 X10'3 (140-440); RED BLOOD COUNT 4.96 X10'6 (4.70-6.10); RED CELL DISTRIBUTION WIDTH 15.6 % (11.5-14.5); WHITE BLOOD COUNT 21.5 X10'3 (4.5-11.0)
[2021-02-05 11:36] LABS: ALANINE AMINOTRANSFERASE 47 U/L (12-78); ALBUMIN/GLOBULIN RATIO 0.4 (1.1-1.5); ALKALINE PHOSPHATASE 102 IU/L (46-116); ANION GAP 10 (8-16); ASPARTATE AMINO TRANSFERASE 27 U/L (10-37); BILIRUBIN,TOTAL 0.3 MG/DL (0.1-1.0); BLOOD UREA NITROGEN 21 MG/DL (7-18); C-REACTIVE PROTEIN 2.36 MG/DL (0.0-0.5); CALCIUM 8.4 MG/DL (8.5-10.1); CHLORIDE 101 MMOL/L (99-107); GLUCOSE 209 MG/DL (70-104); MAGNESIUM 1.9 MG/DL (1.5-2.4); PHOSPHORUS 3.7 MG/DL (2.3-4.5); PREALBUMIN 21.7 MG/DL (19-36); SODIUM 137 MMOL/L (135-145); TOTAL CARBON DIOXIDE 26.3 MMOL/L (24-32); TRIGLYCERIDES 102 MG/DL (20-135); eGFR > 90 ML/MIN
[2021-02-05 12:02] LABS: NUCLEATED RED BLOOD CELLS 1 /100WBC (0-0); PLATELET ESTIMATE INCREASED; TOTAL CELLS COUNTED 100
[2021-02-05 12:03] LABS: MICROCYTOSIS 1+
[2021-02-05 12:06] LABS: HYPOCHROMASIA 1+; POLYCHROMASIA FEW
--- NOTE | 2021-02-05 12:13 | NUR ---
PER DR GARCIA, DECREASE TPN BY 1/2 ML/HR, FINISH TPN BAG AND THEN DC. ADD ENSURE TID FOR EXTRA NUTRITION.
[2021-02-05] MEDS: lactose-reduced food (Ensure Enlive) - 237ml bottle PO SCH ×2 (13:00→18:14)
--- NOTE | 2021-02-05 13:06 | NUR ---
Reassessment: Pt continues to receive TPN at goal and has been advanced to CCHO diet since 02/02. Since then pt has been able to consume mostly 100% of meals. Per MD, to start weaning TPN and pt will also receive Ensure Enlive TID. Pt noted w/ 855ml ostomy output 02/04. Will continue to monitor and make recommendations as appropriate Recommendations: 1. Continue CCHO diet per MD 2. Ensure Enlive TID per MD 3. Consider double protein or additional food w/ meals in lieu of ONS 4. Bowel care per MD post-op 5. DM/Colostomy nutrition therapy educations once appropriate prior to discharge following pt aware of new DM DX by physician A1C 6.7% Addendum: 02/05/21 at [address] Amended: Links added.
[2021-02-05 18:20] VITALS: BP 113/69
--- NOTE | 2021-02-05 18:49 | NUR ---
Problems reprioritized. Patient report given, questions answered & plan of care reviewed with LUIS Lazar.
[2021-02-05] MEDS: insulin glargine (Lantus) pen - multi-dose SQ SCH (21:31)
[2021-02-05 22:00] VITALS: BP 99/62
[2021-02-05] MEDS: fat emulsion 20% inj. 100 ML IV SCH (22:55)
[2021-02-06] MEDS: HYDROcodone/acetaminophen 10/325mg tab PO PRN ×3 (01:19→20:50)
[2021-02-06] MEDS: ZINC/COPPER/MANGANESE/SELENIUM 0.5 ML, chromic chloride inj. 5 MCG in AA 5%/CALCIUM/LYT... IV SCH ×2 (02:33→11:50)
[2021-02-06] MEDS: normal saline 1000ml 1,000 ML IV SCH ×3 (03:32→22:50)
[2021-02-06] MEDS: HYDROmorphone 1 mg/ml syringe IV PRN ×4 (05:15→23:58)
[2021-02-06 06:00] VITALS: BP 102/63
[2021-02-06 06:02] LABS: MAGNESIUM 2.1 MG/DL (1.5-2.4); PHOSPHORUS 4.1 MG/DL (2.3-4.5)
--- NOTE | 2021-02-06 06:10 | NUR ---
received report from juan f adler
[2021-02-06] MEDS: polyethylene glycol 3350 17gm powd pack PO SCH ×4 (07:22→20:02)
[2021-02-06] MEDS: metroNIDAZOLE 500mg tablet PO SCH ×3 (07:27→20:02)
[2021-02-06] MEDS: lactobacillus rhamnosus 10,000 MMU CELLS/CAPSULE PO SCH ×2 (07:27→20:02)
[2021-02-06] MEDS: pantoprazole 40mg Tablet.DR PO SCH (07:27)
[2021-02-06] MEDS: levoFLOXACIN-Levaquin 500mg/D5 100 ML IV SCH (07:29)
[2021-02-06] MEDS: heparin, porcine 5000 units/ml vial SQ SCH ×3 (07:33→23:52)
[2021-02-06] MEDS: lactose-reduced food (Ensure Enlive) - 237ml bottle PO SCH ×3 (07:51→18:11)
[2021-02-06] MEDS: K and/or MAG REPLACEMENT MC SCH ×2 (07:51→20:00)
[2021-02-06] MEDS: dexamethasone inj 6 MG in normal saline 50ml IV soln 50 ML IV SCH (08:31)
[2021-02-06] MEDS ORDERED: glucagon, human recombinant 1mg kit SUBCUT PRN (08:35)
[2021-02-06] MEDS ORDERED: dextrose ORAL solution 15 GM/59 ML bottle PO PRN ×2 (08:35)
[2021-02-06] MEDS ORDERED: dextrose 50%-water 50ml dispensing syringe IV PRN ×2 (08:35)
[2021-02-06] MEDS: insulin Lispro (HumaLOG) vial - multi-dose SQ SCH ×3 (08:53→18:53)
[2021-02-06 10:00] VITALS: BP 107/61
[2021-02-06] MEDS: MVI, adult No.4 with vit. K 10 ML in dextrose 5% water 500ml 500 ML IV SCH ×2 (10:11)
[2021-02-06 11:08] LABS: D-DIMER 4.05 MG/L FEU (0-0.50)
[2021-02-06 11:11] LABS: ALANINE AMINOTRANSFERASE 38 U/L (12-78); ALBUMIN 1.9 G/DL (3.4-5.0); ALBUMIN/GLOBULIN RATIO 0.4 (1.1-1.5); ALKALINE PHOSPHATASE 100 IU/L (46-116); ANION GAP 10 (8-16); ASPARTATE AMINO TRANSFERASE 32 U/L (10-37); BASOPHILS % (AUTO) 0.1 % (0-1); BILIRUBIN,TOTAL 0.3 MG/DL (0.1-1.0); BLOOD UREA NITROGEN 19 MG/DL (7-18); BUN/CREATININE RATIO 27.1 (5.4-32.0); C-REACTIVE PROTEIN 5.19 MG/DL (0.0-0.5); CHLORIDE 101 MMOL/L (99-107); EOSINOPHILS # (AUTO) 0.1 X10'3 (0-0.9); EOSINOPHILS % (AUTO) 0.6 % (0-6); GLUCOSE 213 MG/DL (70-104); HEMATOCRIT 37.2 % (42.0-52.0); HEMOGLOBIN 11.7 g/dl (14.0-17.9); LYMPHOCYTES % (AUTO) 5.3 % (21-51); MEAN CORPUSCULAR HEMOGLOBIN 24.6 PG (27.0-31.0); MEAN CORPUSCULAR HGB CONC 31.5 g/dL (33.0-36.5); MEAN CORPUSCULAR VOLUME 78.1 FL (78-98); MEAN PLATELET VOLUME 6.8 FL (7.4-10.4); MONOCYTES # (AUTO) 0.8 X10'3 (0-0.9); MONOCYTES % (AUTO) 4.1 % (2-12); NEUTROPHILS # (AUTO) 16.8 X10'3 (1.8-7.7); NEUTROPHILS % (AUTO) 89.9 % (42-75); PLATELET COUNT 368 X10'3 (140-440); RED BLOOD COUNT 4.76 X10'6 (4.70-6.10); RED CELL DISTRIBUTION WIDTH 16.3 % (11.5-14.5); SODIUM 137 MMOL/L (135-145); TOTAL CARBON DIOXIDE 25.6 MMOL/L (24-32); TOTAL PROTEIN 6.6 G/DL (6.4-8.2); WHITE BLOOD COUNT 18.6 X10'3 (4.5-11.0); eGFR > 90 ML/MIN
[2021-02-06 12:13] LABS: HYPERSEGMENTED NEUTROPHILS FEW; PLATELET ESTIMATE NORMAL; TOTAL CELLS COUNTED 100
[2021-02-06 12:14] LABS: ANISOCYTOSIS 1+; MICROCYTOSIS 1+; POLYCHROMASIA FEW
[2021-02-06 14:00] VITALS: BP 119/63
[2021-02-06 18:00] VITALS: BP 133/72
--- NOTE | 2021-02-06 18:28 | NUR ---
gave report to juan f hernandez
--- NOTE | 2021-02-06 18:35 | NUR ---
Patient in room ORTHO 4017. I have received report from LUIS Chacon and had the opportunity to ask questions and assume patient care.
[2021-02-06] MEDS: insulin glargine (Lantus) pen - multi-dose SQ SCH (21:26)
[2021-02-06 22:00] VITALS: BP 102/57
[2021-02-07] VITALS (7 sets, daily range): BP systolic 89–112; BP diastolic 55–73
[2021-02-07 04:41] LABS: UREA NITROGEN 24HR,URINE 33.9 GM/24HR (7-20)
[2021-02-07] MEDS: HYDROcodone/acetaminophen 10/325mg tab PO PRN ×4 (05:26→22:41)
--- NOTE | 2021-02-07 06:35 | NUR ---
Problems reprioritized. Patient report given, questions answered & plan of care reviewed with LUIS Holland.
[2021-02-07] MEDS: K and/or MAG REPLACEMENT MC SCH ×2 (08:00→20:00)
[2021-02-07 08:05] LABS: BASOPHILS % (AUTO) 0.1 % (0-1); EOSINOPHILS # (AUTO) 0.1 X10'3 (0-0.9); EOSINOPHILS % (AUTO) 0.8 % (0-6); LYMPHOCYTES # (AUTO) 1.9 X10'3 (1.1-4.8); LYMPHOCYTES % (AUTO) 11.2 % (21-51); MEAN CORPUSCULAR HEMOGLOBIN 24.9 PG (27.0-31.0); MEAN CORPUSCULAR HGB CONC 32.3 g/dL (33.0-36.5); MEAN PLATELET VOLUME 7.2 FL (7.4-10.4); MONOCYTES # (AUTO) 1.2 X10'3 (0-0.9); MONOCYTES % (AUTO) 6.8 % (2-12); NEUTROPHILS # (AUTO) 14.1 X10'3 (1.8-7.7); NEUTROPHILS % (AUTO) 81.1 % (42-75); PLATELET COUNT 413 X10'3 (140-440); RED BLOOD COUNT 4.81 X10'6 (4.70-6.10); RED CELL DISTRIBUTION WIDTH 16.1 % (11.5-14.5); WHITE BLOOD COUNT 17.3 X10'3 (4.5-11.0)
[2021-02-07] MEDS: insulin Lispro (HumaLOG) vial - multi-dose SQ SCH ×3 (08:09→19:00)
[2021-02-07] MEDS: polyethylene glycol 3350 17gm powd pack PO SCH ×4 (08:10→20:22)
[2021-02-07] MEDS: heparin, porcine 5000 units/ml vial SQ SCH ×3 (08:10→23:29)
[2021-02-07] MEDS: levoFLOXACIN-Levaquin 500mg/D5 100 ML IV SCH (08:11)
[2021-02-07] MEDS: pantoprazole 40mg Tablet.DR PO SCH (08:11)
[2021-02-07] MEDS: lactose-reduced food (Ensure Enlive) - 237ml bottle PO SCH ×3 (08:11→18:00)
[2021-02-07] MEDS: metroNIDAZOLE 500mg tablet PO SCH ×3 (08:11→20:22)
[2021-02-07] MEDS: lactobacillus rhamnosus 10,000 MMU CELLS/CAPSULE PO SCH ×2 (08:11→20:22)
[2021-02-07] MEDS: dexamethasone inj 6 MG in normal saline 50ml IV soln 50 ML IV SCH (08:11)
[2021-02-07] MEDS: normal saline 1000ml 1,000 ML IV SCH ×2 (08:12→20:22)
[2021-02-07 08:17] LABS: ALANINE AMINOTRANSFERASE 39 U/L (12-78); ALBUMIN 2.1 G/DL (3.4-5.0); ALBUMIN/GLOBULIN RATIO 0.4 (1.1-1.5); ALKALINE PHOSPHATASE 108 IU/L (46-116); ANION GAP 9 (8-16); ASPARTATE AMINO TRANSFERASE 29 U/L (10-37); BILIRUBIN,TOTAL 0.3 MG/DL (0.1-1.0); BLOOD UREA NITROGEN 18 MG/DL (7-18); BUN/CREATININE RATIO 24.7 (5.4-32.0); CALCIUM 8.6 MG/DL (8.5-10.1); CHLORIDE 103 MMOL/L (99-107); CREATININE 0.73 MG/DL (0.60-1.10); GLUCOSE 102 MG/DL (70-104); LACTATE DEHYDROGENASE 275 U/L (85-227); MAGNESIUM 2.1 MG/DL (1.5-2.4); PHOSPHORUS 4.1 MG/DL (2.3-4.5); POTASSIUM 3.9 MMOL/L (3.5-5.1); SODIUM 138 MMOL/L (135-145); TOTAL CARBON DIOXIDE 26.1 MMOL/L (24-32); TOTAL PROTEIN 7.1 G/DL (6.4-8.2); eGFR > 90 ML/MIN
[2021-02-07 08:50] LABS: D-DIMER 3.35 MG/L FEU (0-0.50)
[2021-02-07 10:29] LABS: ANISOCYTOSIS 1+; PLATELET ESTIMATE NORMAL; TOTAL CELLS COUNTED 100
[2021-02-07 10:30] LABS: HYPERSEGMENTED NEUTROPHILS FEW; MICROCYTOSIS 1+
--- NOTE | 2021-02-07 18:39 | NUR ---
Problems reprioritized. Patient report given, questions answered & plan of care reviewed with Juli MSITH.
--- NOTE | 2021-02-07 18:41 | NUR ---
Patient in room ORTHO 4017. I have received report from Amalia SMITH and had the opportunity to ask questions and assume patient care.
[2021-02-07] MEDS: insulin glargine (Lantus) pen - multi-dose SQ SCH (21:23)
[2021-02-08 02:00] VITALS: BP 109/60
[2021-02-08] MEDS: HYDROcodone/acetaminophen 10/325mg tab PO PRN ×3 (05:03→16:21)
[2021-02-08 06:00] VITALS: BP 104/60
--- NOTE | 2021-02-08 06:17 | NUR ---
Problems reprioritized. Patient report given, questions answered & plan of care reviewed with Amalia SMITH.
[2021-02-08 07:37] LABS: BASOPHILS % (AUTO) 0.1 % (0-1); EOSINOPHILS # (AUTO) 0.1 X10'3 (0-0.9); EOSINOPHILS % (AUTO) 0.6 % (0-6); HEMATOCRIT 36.3 % (42.0-52.0); HEMOGLOBIN 11.9 g/dl (14.0-17.9); LYMPHOCYTES # (AUTO) 2.4 X10'3 (1.1-4.8); LYMPHOCYTES % (AUTO) 15.1 % (21-51); MEAN CORPUSCULAR HGB CONC 32.8 g/dL (33.0-36.5); MEAN CORPUSCULAR VOLUME 76.3 FL (78-98); MEAN PLATELET VOLUME 7.2 FL (7.4-10.4); MONOCYTES # (AUTO) 0.9 X10'3 (0-0.9); MONOCYTES % (AUTO) 6.1 % (2-12); NEUTROPHILS # (AUTO) 12.2 X10'3 (1.8-7.7); NEUTROPHILS % (AUTO) 78.1 % (42-75); PLATELET COUNT 402 X10'3 (140-440); RED BLOOD COUNT 4.75 X10'6 (4.70-6.10); RED CELL DISTRIBUTION WIDTH 16.4 % (11.5-14.5); WHITE BLOOD COUNT 15.7 X10'3 (4.5-11.0)
[2021-02-08 07:51] LABS: ALANINE AMINOTRANSFERASE 40 U/L (12-78); ALBUMIN 2.2 G/DL (3.4-5.0); ALBUMIN/GLOBULIN RATIO 0.4 (1.1-1.5); ALKALINE PHOSPHATASE 127 IU/L (46-116); ANION GAP 8 (8-16); ASPARTATE AMINO TRANSFERASE 36 U/L (10-37); BILIRUBIN,TOTAL 0.3 MG/DL (0.1-1.0); BLOOD UREA NITROGEN 19 MG/DL (7-18); BUN/CREATININE RATIO 23.5 (5.4-32.0); C-REACTIVE PROTEIN 5.72 MG/DL (0.0-0.5); CALCIUM 9.1 MG/DL (8.5-10.1); CHLORIDE 102 MMOL/L (99-107); CREATININE 0.81 MG/DL (0.60-1.10); GLUCOSE 99 MG/DL (70-104); LACTATE DEHYDROGENASE 242 U/L (85-227); MAGNESIUM 2.1 MG/DL (1.5-2.4); PHOSPHORUS 4.7 MG/DL (2.3-4.5); POTASSIUM 4.1 MMOL/L (3.5-5.1); PREALBUMIN 19.4 MG/DL (19-36); SODIUM 138 MMOL/L (135-145); TOTAL CARBON DIOXIDE 28.2 MMOL/L (24-32); TOTAL PROTEIN 7.4 G/DL (6.4-8.2); TRIGLYCERIDES 74 MG/DL (20-135); eGFR > 90 ML/MIN
[2021-02-08 07:57] LABS: D-DIMER 2.78 MG/L FEU (0-0.50)
[2021-02-08] MEDS: K and/or MAG REPLACEMENT MC SCH (08:00)
[2021-02-08] MEDS: heparin, porcine 5000 units/ml vial SQ SCH ×2 (08:08→16:21)
[2021-02-08] MEDS: polyethylene glycol 3350 17gm powd pack PO SCH ×3 (08:08→16:21)
[2021-02-08] MEDS: lactobacillus rhamnosus 10,000 MMU CELLS/CAPSULE PO SCH (08:09)
[2021-02-08] MEDS: pantoprazole 40mg Tablet.DR PO SCH (08:09)
[2021-02-08] MEDS: levoFLOXACIN-Levaquin 500mg/D5 100 ML IV SCH (08:09)
[2021-02-08] MEDS: lactose-reduced food (Ensure Enlive) - 237ml bottle PO SCH ×2 (08:09→13:05)
[2021-02-08] MEDS: metroNIDAZOLE 500mg tablet PO SCH ×2 (08:09→12:56)
[2021-02-08] MEDS: dexamethasone inj 6 MG in normal saline 50ml IV soln 50 ML IV SCH (08:09)
[2021-02-08] MEDS: insulin Lispro (HumaLOG) vial - multi-dose SQ SCH ×2 (08:19→13:05)
[2021-02-08 10:00] VITALS: BP 114/67
--- NOTE | 2021-02-08 12:23 | NUR ---
media services specialist paged regarding help with medical insurance per patient request. Spoke to patient, says spoke to someone over the phone and was told social work instructor can not come up to the covid unit. Phone is next to patient in case they are able to call instead.
--- NOTE | 2021-02-08 13:48 | NUR ---
F/u 02/08: Pt PO 100% avg carb controlled meals and Ensure Enlive TIDWM exceeding estimated needs. RD d/w RN regarding addition of low-residue diet given new colostomy and change from Ensure Enlive TID to Ensure High Protein TID if MD agreeable. Colostomy yesterday -300ml per EMR. RD contacted pt via TC and provided verbal colostomy diet ed; pt new DM DX this admit though reports unsure of Glu/A1C 6.7% during RC discussion. RD encouraged pt to follow PCP recommendations for DM management and notified RN who reports has educated pt on DM/Glu but will reinforce today. Pt is agreeable to receive written eds via mail to home address in EMR; written colostomy/DM ed handouts mailed to pt home address. No further nutrition interventions at this time. Will continue to monitor. Recommendations: 1. Continue carb controlled diet; low-residue diet addition if MD agreeable given recent colostomy 2. Ensure Enlive TID per MD; change to Ensure High Protein TIDWM if MD agreeable given adequate PO intake 3. Consider double protein or additional food w/ meals in lieu of ONS 4. Bowel care per MD post-op Addendum: 02/08/21 at [address] Amended: Links added.
[2021-02-08 14:00] VITALS: BP 110/63
[2021-02-08] MEDS ORDERED: LACT1CAP26 PO (14:35)
[2021-02-08] MEDS ORDERED: ASPI-611 PO (14:35)
[2021-02-08] MEDS ORDERED: DEXA1TAB PO (14:35)
[2021-02-08] MEDS ORDERED: LEVO500T90 PO (14:35)
[2021-02-08] MEDS ORDERED: METR-159 PO (14:35)
[2021-02-08] MEDS ORDERED: PANT40TA54 PO (14:35)
[2021-02-08] MEDS ORDERED: HYDR-3965 PO (16:20)
--- NOTE | 2021-02-08 16:40 | NUR ---
Discharge instructions were reviewed with patient. I will be going down stairs with patient to review discharge instructions and colostomy/AMARJIT drain care with patient's . PICC line and PIV were removed, catheters are intact. Colostomy care and AMARJIT drain care reviewed with patient. Colostomy supplies sent with patient.
== END 2021-02-08 16:55 | disposition home or self-care (01) | DRG 853 ==
LOC: ER 15:42 → ED HOLD 21:37 → ORTHO 4S 22:50
PROVIDERS: ADMIT Internal Medicine; ATTEND Internal Medicine
PROC: BW211ZZ Computerized Tomography (CT Scan) of Abdomen and Pelvis using Low Osmolar Contrast (ICD-10-PCS; 2021-01-30)
PROC: 0W9J30Z Drainage of Pelvic Cavity with Drainage Device, Percutaneous Approach (ICD-10-PCS; 2021-01-31)
PROC: 02HV33Z Insertion of Infusion Device into Superior Vena Cava, Percutaneous Approach (ICD-10-PCS; 2021-01-31)
PROC: B548ZZA Ultrasonography of Superior Vena Cava, Guidance (ICD-10-PCS; 2021-01-31)
PROC: 0DBN8ZX Excision of Sigmoid Colon, Via Natural or Artificial Opening Endoscopic, Diagnostic (ICD-10-PCS; principal; 2021-02-01)
PROC: 0FB24ZX Excision of Left Lobe Liver, Percutaneous Endoscopic Approach, Diagnostic (ICD-10-PCS; 2021-02-01)
PROC: 0D1M4Z4 Bypass Descending Colon to Cutaneous, Percutaneous Endoscopic Approach (ICD-10-PCS; 2021-02-01)
PROC: BW251ZZ Computerized Tomography (CT Scan) of Chest, Abdomen and Pelvis using Low Osmolar Contrast (ICD-10-PCS; 2021-02-05)
DX: A41.9 Sepsis, unspecified organism (principal); E43 Unspecified severe protein-calorie malnutrition; K65.1 Peritoneal abscess; U07.1 COVID-19; C18.7 Malignant neoplasm of sigmoid colon; C20 Malignant neoplasm of rectum; C78.00 Secondary malignant neoplasm of unspecified lung; C78.7 Secondary malignant neoplasm of liver and intrahepatic bile duct; R18.8 Other ascites; K57.20 Diverticulitis of large intestine with perforation and abscess without bleeding; K92.1 Melena; E66.01 Morbid (severe) obesity due to excess calories; B95.4 Other streptococcus as the cause of diseases classified elsewhere; B96.20 Unspecified Escherichia coli [E. coli] as the cause of diseases classified elsewhere; E11.65 Type 2 diabetes mellitus with hyperglycemia; E87.6 Hypokalemia; Z79.01 Long term (current) use of anticoagulants; Z68.29 Body mass index [BMI] 29.0-29.9, adult
CPT/HCPCS: 36573; 49406; 99285; Z7506; Z7508; 36415; 71260; 72131; 74177; 74178; 80053; 80061; 80202; 81001; 82948; 83036; 83605; 83615; 83735; 84100; 84132; 84134; 84145; 84478; 84560; 85007; 85025; 85379; 85610; 86140; 87040; 87070; 87077; 87081; 87186; 87635; 97116; 97161; 97530; 99152; 99153; A4421; A4615; A4618; A6258; A6402; A7000; C1758; C9803; G0378; J1100; J1170; J1644; J1815; J1956; J2250; J2270; J2405; J2543; J2704; J2710; J3010; J3360; J3370; J3475; J3480; J3490; J7030; J7060; J7120; Q9963; Q9967

== ENCOUNTER 2021-02-11 00:47 | Emergency (ER) | payer OTHER ==
[~2021-02-11] VITALS: Ht 180.3 cm; Wt 97.1 kg
[~2021-02-11 00:47] MED LIST: ASPI-611 PO; DEXA1TAB PO; HYDR-3965 PO; LACT1CAP26 PO; LEVO500T90 PO; METR-159 PO; PANT40TA54 PO
[2021-02-11 01:37] VITALS: BP 138/74
== END 2021-02-11 01:56 | disposition home or self-care (01) ==
LOC: ER 00:48
DX: C78.5 Secondary malignant neoplasm of large intestine and rectum (principal); K94.09 Other complications of colostomy; Z79.82 Long term (current) use of aspirin; Z79.899 Other long term (current) drug therapy; Z79.2 Long term (current) use of antibiotics; Z85.038 Personal history of other malignant neoplasm of large intestine
CPT/HCPCS: 99281

== ENCOUNTER 2021-02-11 20:37 | Emergency (ER) | payer OTHER | END 2021-02-11 22:45 | disposition left against medical advice (07) | LOC: ER 20:39 | DX: Z53.21 Procedure and treatment not carried out due to patient leaving prior to being seen by health care provider (principal) ==

== ENCOUNTER 2021-03-30 23:20 | Emergency (ER) | payer SELFPAY ==
[~2021-03-30] VITALS: Ht 180.3 cm; Wt 110.2 kg
[~2021-03-30 23:20] MED LIST changes: -ASPI-611 PO; -HYDR-3965 PO; -LEVO500T90 PO
[2021-03-30 23:22] VITALS: BP 112/65
[2021-03-31] MEDS ORDERED: iohexol 300mg/ml 100ml inj. ONE (00:05)
[2021-03-31 00:53] LABS: BASOPHILS # (AUTO) 0.1 X10'3 (0-0.2); BASOPHILS % (AUTO) 0.9 % (0-1); EOSINOPHILS # (AUTO) 0.4 X10'3 (0-0.9); EOSINOPHILS % (AUTO) 4.4 % (0-6); HEMATOCRIT 35.6 % (42.0-52.0); HEMOGLOBIN 11.6 g/dl (14.0-17.9); LYMPHOCYTES # (AUTO) 1.6 X10'3 (1.1-4.8); LYMPHOCYTES % (AUTO) 17.3 % (21-51); MEAN CORPUSCULAR HEMOGLOBIN 24.6 PG (27.0-31.0); MEAN CORPUSCULAR HGB CONC 32.6 g/dL (33.0-36.5); MEAN CORPUSCULAR VOLUME 75.5 FL (78-98); MEAN PLATELET VOLUME 7.3 FL (7.4-10.4); MONOCYTES # (AUTO) 0.7 X10'3 (0-0.9); MONOCYTES % (AUTO) 7.9 % (2-12); NEUTROPHILS # (AUTO) 6.2 X10'3 (1.8-7.7); NEUTROPHILS % (AUTO) 69.5 % (42-75); PLATELET COUNT 438 X10'3 (140-440); RED BLOOD COUNT 4.71 X10'6 (4.70-6.10); RED CELL DISTRIBUTION WIDTH 17.1 % (11.5-14.5)
[2021-03-31 01:19] LABS: ALANINE AMINOTRANSFERASE 33 U/L (12-78); ALBUMIN 3.1 G/DL (3.4-5.0); ALBUMIN/GLOBULIN RATIO 0.7 (1.1-1.5); ALKALINE PHOSPHATASE 139 IU/L (46-116); ANION GAP 12 (8-16); ASPARTATE AMINO TRANSFERASE 37 U/L (10-37); BILIRUBIN,DIRECT 0.1 MG/DL (0-0.3); BILIRUBIN,TOTAL 0.3 MG/DL (0.1-1.0); BLOOD UREA NITROGEN 14 MG/DL (7-18); BUN/CREATININE RATIO 20.3 (5.4-32.0); CALCIUM 8.9 MG/DL (8.5-10.1); CHLORIDE 104 MMOL/L (99-107); CREATININE 0.69 MG/DL (0.60-1.10); GLUCOSE 105 MG/DL (70-104); LIPASE 186 U/L (73-393); POTASSIUM 3.5 MMOL/L (3.5-5.1); SODIUM 140 MMOL/L (135-145); TOTAL CARBON DIOXIDE 24.4 MMOL/L (24-32); TOTAL PROTEIN 7.7 G/DL (6.4-8.2); eGFR > 90 ML/MIN
[2021-03-31] MEDS ORDERED: ciprofloxacin 250mg tablet PO STA (02:16)
[2021-03-31] MEDS ORDERED: metroNIDAZOLE 500mg tablet PO ONE (02:20)
[2021-03-31] MEDS ORDERED: [UNRECOGNIZED DRUG - CODE] PO (02:38)
[2021-03-31] MEDS ORDERED: METR-159 PO (02:38)
[2021-03-31] MEDS ORDERED: HYDR-3965 PO (02:39)
[2021-03-31] MEDS ORDERED: HYDROcodone/acetaminophen 10/325mg tab PO ONE (03:00)
== END 2021-03-31 03:15 | disposition home or self-care (01) ==
LOC: ER 23:20
DX: R91.8 Other nonspecific abnormal finding of lung field (principal); M54.9 Dorsalgia, unspecified; K52.9 Noninfective gastroenteritis and colitis, unspecified
CPT/HCPCS: 36415; 71045; 74177; 80048; 80076; 83605; 83690; 85025; 93005; 99285; Q9967

== ENCOUNTER 2021-05-14 07:08 | Day surgery (SDC) | payer MEDICAID ==
[~2021-05-14] VITALS: Ht 180.3 cm; Wt 104.6 kg
[~2021-05-14 07:08] MED LIST changes: -DEXA1TAB PO; +HYDR-3964 PO; -LACT1CAP26 PO; -METR-159 PO; -PANT40TA54 PO; +iohexol 300mg/ml 100ml inj. ONE
[2021-05-14] MEDS ORDERED: normal saline 1000ml 1,000 ML IV SCH (07:25)
[2021-05-14 07:40] VITALS: BP 117/78
[2021-05-14] MEDS ORDERED: CAPE500T15 PO (07:50)
[2021-05-14] MEDS ORDERED: LIDOcaine 1% (10mg/ml)w/preservative inj. 20ml MDV ONE (08:12)
[2021-05-14] MEDS ORDERED: heparin sodium, porcine/PF 100unit/ml 5ML syringe ONE (08:12)
[2021-05-14] MEDS ORDERED: midazolam 1 mg/ML 2ml injection ONE ×2 (08:13→09:09)
[2021-05-14] MEDS ORDERED: fentaNYL/PF 50MCG/1 ML 2ML syringe ONE ×2 (08:13→09:09)
[2021-05-14 09:32] VITALS: BP 125/72
[2021-05-14 09:47] VITALS: BP 128/70
[2021-05-14 10:02] VITALS: BP 129/74
[2021-05-14 10:17] VITALS: BP 115/64
[2021-05-14 10:27] VITALS: BP 121/67
== END 2021-05-14 10:35 | disposition home or self-care (01) ==
LOC: SSTAY O 07:08
PROVIDERS: ATTEND Radiology Diagnostic Radiology
DX: C18.7 Malignant neoplasm of sigmoid colon (principal); C78.7 Secondary malignant neoplasm of liver and intrahepatic bile duct; C78.00 Secondary malignant neoplasm of unspecified lung; Z90.49 Acquired absence of other specified parts of digestive tract; Z98.890 Other specified postprocedural states; Z79.899 Other long term (current) drug therapy
CPT/HCPCS: 36561; 76937; 77001; 99152; 99153; C1769; C1788; C1894; J1642; J2250; J3010; J3490; Q9967

== ENCOUNTER 2021-07-19 08:20 | Outpatient (CLI) | payer MEDICAID ==
[~2021-07-19 08:20] MED LIST changes: +CAPE500T15 PO; -iohexol 300mg/ml 100ml inj. ONE
[2021-07-19] MEDS ORDERED: iohexol 300mg/ml 100ml inj. ONE (08:30)
== END 2021-07-19 23:59 | disposition home or self-care (01) ==
LOC: 64 CT 08:20
PROVIDERS: ATTEND Internal Medicine
DX: C18.7 Malignant neoplasm of sigmoid colon (principal); R91.8 Other nonspecific abnormal finding of lung field; R59.0 Localized enlarged lymph nodes; K76.89 Other specified diseases of liver; M12.9 Arthropathy, unspecified; M47.814 Spondylosis without myelopathy or radiculopathy, thoracic region
CPT/HCPCS: 71260; 74177; J3490; Q9967

== ENCOUNTER 2021-08-28 19:02 | Emergency (ER) | payer MEDICAID ==
[~2021-08-28] VITALS: Ht 180.3 cm; Wt 111.9 kg
[2021-08-28 19:21] VITALS: BP 129/83
[2021-08-29 00:01] LABS: BASOPHILS % (AUTO) 0.3 % (0-1); EOSINOPHILS % (AUTO) 0.2 % (0-6); HEMATOCRIT 42.7 % (42.0-52.0); HEMOGLOBIN 14.4 g/dl (14.0-17.9); LYMPHOCYTES # (AUTO) 1.5 X10'3 (1.1-4.8); LYMPHOCYTES % (AUTO) 13.1 % (21-51); MEAN CORPUSCULAR HEMOGLOBIN 29.7 PG (27.0-31.0); MEAN CORPUSCULAR HGB CONC 33.6 g/dL (33.0-36.5); MEAN CORPUSCULAR VOLUME 88.3 FL (78-98); MEAN PLATELET VOLUME 7.2 FL (7.4-10.4); MONOCYTES # (AUTO) 1.6 X10'3 (0-0.9); MONOCYTES % (AUTO) 14.2 % (2-12); NEUTROPHILS # (AUTO) 8.1 X10'3 (1.8-7.7); NEUTROPHILS % (AUTO) 72.2 % (42-75); PLATELET COUNT 324 X10'3 (140-440); RED BLOOD COUNT 4.83 X10'6 (4.70-6.10); RED CELL DISTRIBUTION WIDTH 17.6 % (11.5-14.5); WHITE BLOOD COUNT 11.2 X10'3 (4.5-11.0)
[2021-08-29 00:14] LABS: ALANINE AMINOTRANSFERASE 73 U/L (12-78); ALBUMIN/GLOBULIN RATIO 0.4 (1.1-1.5); ALKALINE PHOSPHATASE 225 IU/L (46-116); ANION GAP 11 (8-16); ASPARTATE AMINO TRANSFERASE 106 U/L (10-37); BILIRUBIN,TOTAL 0.7 MG/DL (0.1-1.0); BLOOD UREA NITROGEN 12 MG/DL (7-18); BUN/CREATININE RATIO 12.6 (5.4-32.0); CALCIUM 9.7 MG/DL (8.5-10.1); CHLORIDE 101 MMOL/L (99-107); CREATININE 0.95 MG/DL (0.60-1.10); GLUCOSE 192 MG/DL (70-104); POTASSIUM 3.3 MMOL/L (3.5-5.1); SODIUM 138 MMOL/L (135-145); eGFR 87 ML/MIN
[2021-08-29 01:07] LABS: CLARITY,URINE CLEAR (Clear); COLOR,URINE YELLOW (Yellow); GLUCOSE, URINE NEGATIVE (Neg); KETONES,URINE NEGATIVE (Neg); LEUKOCYTE ESTERASE ,URINE NEGATIVE (Neg); NITRITES, URINE NEGATIVE (Neg); OCCULT BLOOD,URINE TRACE-INTACT (Neg); PROTEIN,URINE 30 mg/dl (Neg)
[2021-08-29 01:10] LABS: UA COLLECTION TYPE NON-SPECIFIED
[2021-08-29 01:13] LABS: BACTERIA,URINE FEW /HPF (Neg); MUCUS STRANDS MODERATE /LPF (Neg); RBC,URINE 0-2 /HPF (0-2); SQUAMOUS EPITHELIAL CELL,UR FEW /LPF (FEW)
[2021-08-29] MEDS ORDERED: acetaminophen 325mg tablet PO ONE (01:35)
[2021-08-29] MEDS ORDERED: ibuprofen tablet 400 MG TABLET PO ONE (01:35)
--- NOTE | 2021-08-29 01:48 | NUR ---
po med x2 given
== END 2021-08-29 01:49 | disposition home or self-care (01) ==
LOC: ER 19:03
DX: R50.9 Fever, unspecified (principal); Z20.822 Contact with and (suspected) exposure to COVID-19; R05.9 Cough, unspecified; Z85.038 Personal history of other malignant neoplasm of large intestine; Z79.899 Other long term (current) drug therapy
CPT/HCPCS: 36415; 71045; 80053; 81001; 83605; 83735; 84145; 85025; 87040; 87088; 87635; 93005; 99285; C9803; 87077; 87186

== ENCOUNTER 2021-09-06 00:34 | Emergency (ER) | payer MEDICAID ==
[~2021-09-06] VITALS: Ht 167.6 cm; Wt 116.8 kg
[2021-09-06] MEDS ORDERED: morphine 4 MG/ML inj SYRINge IV ONE (09:55)
[2021-09-06] MEDS ORDERED: ondansetron/PF 4mg/2ml inj IV ONE (09:55)
[2021-09-06] MEDS ORDERED: normal saline 1000ml 1,000 ML IV ONE (09:55)
[2021-09-06 10:20] LABS: BASOPHILS % (AUTO) 0.3 % (0-1); EOSINOPHILS % (AUTO) 0.1 % (0-6); HEMATOCRIT 38.1 % (42.0-52.0); HEMOGLOBIN 12.9 g/dl (14.0-17.9); LYMPHOCYTES # (AUTO) 1.5 X10'3 (1.1-4.8); LYMPHOCYTES % (AUTO) 13.5 % (21-51); MEAN CORPUSCULAR HEMOGLOBIN 29.9 PG (27.0-31.0); MEAN CORPUSCULAR HGB CONC 33.9 g/dL (33.0-36.5); MEAN CORPUSCULAR VOLUME 88.2 FL (78-98); MEAN PLATELET VOLUME 6.9 FL (7.4-10.4); MONOCYTES # (AUTO) 1.9 X10'3 (0-0.9); MONOCYTES % (AUTO) 17.2 % (2-12); NEUTROPHILS # (AUTO) 7.5 X10'3 (1.8-7.7); NEUTROPHILS % (AUTO) 68.9 % (42-75); PLATELET COUNT 317 X10'3 (140-440); RED BLOOD COUNT 4.32 X10'6 (4.70-6.10); RED CELL DISTRIBUTION WIDTH 17.8 % (11.5-14.5); WHITE BLOOD COUNT 10.9 X10'3 (4.5-11.0)
[2021-09-06 10:36] LABS: ALANINE AMINOTRANSFERASE 49 U/L (12-78); ALBUMIN 2.5 G/DL (3.4-5.0); ALBUMIN/GLOBULIN RATIO 0.4 (1.1-1.5); ALKALINE PHOSPHATASE 186 IU/L (46-116); ANION GAP 11 (8-16); ASPARTATE AMINO TRANSFERASE 101 U/L (10-37); BILIRUBIN,TOTAL 0.7 MG/DL (0.1-1.0); BLOOD UREA NITROGEN 17 MG/DL (7-18); BUN/CREATININE RATIO 16.2 (5.4-32.0); CALCIUM 9.4 MG/DL (8.5-10.1); CHLORIDE 99 MMOL/L (99-107); CREATININE 1.05 MG/DL (0.60-1.10); GLUCOSE 156 MG/DL (70-104); POTASSIUM 3.8 MMOL/L (3.5-5.1); SODIUM 133 MMOL/L (135-145); TOTAL CARBON DIOXIDE 23.2 MMOL/L (24-32); TOTAL PROTEIN 9.5 G/DL (6.4-8.2); eGFR 77 ML/MIN
[2021-09-06 11:51] LABS: TOTAL CELLS COUNTED 100
[2021-09-06 11:52] LABS: ANISOCYTOSIS 1+; PLATELET ESTIMATE NORMAL
[2021-09-06 11:57] VITALS: BP 124/62
== END 2021-09-06 11:58 | disposition home or self-care (01) ==
LOC: ER 00:35
DX: R50.9 Fever, unspecified (principal); T45.1X5S Adverse effect of antineoplastic and immunosuppressive drugs, sequela; Z98.890 Other specified postprocedural states; Y92.89 Other specified places as the place of occurrence of the external cause
CPT/HCPCS: 71045; 80053; 85007; 85025; 93005; 99285; J2270; J2405; J7030

== ENCOUNTER 2021-09-20 23:13 | Inpatient (IN) | payer MEDICAID ==
[~2021-09-20] VITALS: Ht 180.3 cm; Wt 109.0 kg
[2021-09-21] MEDS ORDERED: ketorolac trometh. 30mg/ml inj. IV ONE (00:25)
[2021-09-21] MEDS ORDERED: HYDROmorphone 1 mg/ml syringe IV ONE (00:25)
[2021-09-21] MEDS ORDERED: normal saline 1000ml 1,000 ML IV ONE ×3 (00:25→02:20)
[2021-09-21] MEDS ORDERED: ondansetron/PF 4mg/2ml inj IV ONE (00:25)
--- NOTE | 2021-09-21 00:35 | NUR ---
PT AWAKE AND CONFUSED VISUAL HALLUCINATIONS. PER SPOUSE STARTED FEVER PROGRESSED. PT TACHYCARDIC.
[2021-09-21] MEDS ORDERED: acetaminophen 1,000mg/100ml IV 100 ML IV SCH (00:47)
[2021-09-21 01:42] LABS: BASOPHILS # (AUTO) 0.1 X10'3 (0-0.2); BASOPHILS % (AUTO) 0.6 % (0-1); EOSINOPHILS % (AUTO) 0 % (0-6); HEMATOCRIT 29.9 % (42.0-52.0); HEMOGLOBIN 9.8 g/dl (14.0-17.9); LYMPHOCYTES # (AUTO) 1.1 X10'3 (1.1-4.8); LYMPHOCYTES % (AUTO) 10.7 % (21-51); MEAN CORPUSCULAR HEMOGLOBIN 29.1 PG (27.0-31.0); MEAN CORPUSCULAR HGB CONC 32.9 g/dL (33.0-36.5); MEAN CORPUSCULAR VOLUME 88.4 FL (78-98); MEAN PLATELET VOLUME 7.3 FL (7.4-10.4); MONOCYTES # (AUTO) 1.6 X10'3 (0-0.9); MONOCYTES % (AUTO) 15.8 % (2-12); NEUTROPHILS # (AUTO) 7.6 X10'3 (1.8-7.7); NEUTROPHILS % (AUTO) 72.9 % (42-75); PLATELET COUNT 362 X10'3 (140-440); RED BLOOD COUNT 3.38 X10'6 (4.70-6.10); RED CELL DISTRIBUTION WIDTH 17.8 % (11.5-14.5); WHITE BLOOD COUNT 10.4 X10'3 (4.5-11.0)
[2021-09-21 01:55] LABS: ALANINE AMINOTRANSFERASE 53 U/L (12-78); ALBUMIN 1.6 G/DL (3.4-5.0); ALBUMIN/GLOBULIN RATIO 0.3 (1.1-1.5); ALKALINE PHOSPHATASE 263 IU/L (46-116); ANION GAP 11 (8-16); ASPARTATE AMINO TRANSFERASE 211 U/L (10-37); BILIRUBIN,TOTAL 0.3 MG/DL (0.1-1.0); BLOOD UREA NITROGEN 16 MG/DL (7-18); BUN/CREATININE RATIO 17.6 (5.4-32.0); CALCIUM 7.6 MG/DL (8.5-10.1); CHLORIDE 106 MMOL/L (99-107); CREATININE 0.91 MG/DL (0.60-1.10); GLUCOSE 151 MG/DL (70-104); MAGNESIUM 1.8 MG/DL (1.5-2.4); POTASSIUM 3.4 MMOL/L (3.5-5.1); SODIUM 139 MMOL/L (135-145); TOTAL CARBON DIOXIDE 21.8 MMOL/L (24-32); TOTAL PROTEIN 7.5 G/DL (6.4-8.2); eGFR > 90 ML/MIN
[2021-09-21 02:19] LABS: TOTAL CELLS COUNTED 100
[2021-09-21 02:20] LABS: ANISOCYTOSIS 1+; PLATELET ESTIMATE NORMAL
--- NOTE | 2021-09-21 02:28 | NUR ---
NOTIFIED OF PT B/P 89/41. N/O FOR 3RD LITER OF NS
[2021-09-21 02:39] LABS: CLARITY,URINE CLEAR (Clear); COLOR,URINE YELLOW (Yellow); GLUCOSE, URINE NEGATIVE (Neg); KETONES,URINE NEGATIVE (Neg); LEUKOCYTE ESTERASE ,URINE NEGATIVE (Neg); NITRITES, URINE NEGATIVE (Neg); OCCULT BLOOD,URINE NEGATIVE (Neg); PROTEIN,URINE NEGATIVE (Neg); UROBILINOGEN,URINE 0.2 E.U/dL (0.2-1.0)
[2021-09-21 02:41] LABS: UA COLLECTION TYPE CLN CATCH MIDSTREAM
[2021-09-21] MEDS ORDERED: iohexol 350MG/ML 100ml bottle IV ONE (02:43)
--- NOTE | 2021-09-21 03:30 | NUR ---
PT AWAKE AND ALERT TO PERSON PLACE TIME AND SITUATION. NRS ON MONITOR. B/P WNL. TEMP 98.9. STATES "I FEEL BETTER". WILL MONITOR.
[2021-09-21] MEDS: piperacillin/tazo 3.375gm/50ml 50 ML IV SCH ×3 (03:34→15:36)
[2021-09-21] MEDS ORDERED: HYDROcodone/acetaminophen 5mg/325mg tablet PO PRN (06:10)
[2021-09-21] MEDS ORDERED: mag hydrox/Alum hydrox/simeth 30ml oral suspension PO PRN (06:10)
[2021-09-21] MEDS ORDERED: potassium CL 10mEq/100ml bag 100 ML IV PRN (06:10)
[2021-09-21] MEDS ORDERED: acetaminophen 325mg tablet PO PRN (06:10)
[2021-09-21] MEDS ORDERED: morphine 2 MG/ML inj. syringe IV PRN ×2 (06:10)
[2021-09-21] MEDS ORDERED: magnesium 4gm in 100ml NS 100 ML IV PRN (06:10)
[2021-09-21] MEDS ORDERED: ondansetron/PF 4mg/2ml inj IV PRN (06:10)
[2021-09-21] MEDS ORDERED: magnesium Cl slow-release 64mg tablet PO PRN (06:10)
[2021-09-21] MEDS ORDERED: POTASSIUM BICARB 20meq eff tab 20 MEQ TABLET.EFF PO PRN (06:10)
[2021-09-21] MEDS ORDERED: magnesium 2GM in 50ml NS 50 ML IV PRN (06:10)
[2021-09-21] MEDS ORDERED: magnesium hydroxide 30ml (MOM) UD suspension PO PRN (06:10)
--- NOTE | 2021-09-21 06:35 | NUR ---
Patient resting on stretcher, child day care teacher in place. at bedside. No complaints at this time. Will continue to monitor.
[2021-09-21] MEDS: normal saline 1000ml 1,000 ML IV SCH ×2 (07:05→16:40)
[2021-09-21] MEDS: docusate sod 100mg capsule PO SCH ×2 (08:00→20:28)
[2021-09-21] MEDS ORDERED: piperacillin/tazo 3.375gm/50ml 50 ML IV SCH ×2 (08:00)
[2021-09-21 08:02] LABS: HEMOGLOBIN A1C 7.4 % (4.5-6.2)
[2021-09-21] MEDS: K and/or MAG REPLACEMENT MC SCH ×2 (08:22→20:32)
[2021-09-21] MEDS: POTASSIUM BICARB 20meq eff tab 20 MEQ TABLET.EFF PO PRN ×3 (08:22→20:28)
--- NOTE | 2021-09-21 10:00 | NUR ---
Patient in room PCU 3015. I have received report from Rianna SMITH and had the opportunity to ask questions and assume patient care.
[2021-09-21] MEDS: HYDROcodone/acetaminophen 10/325mg tab PO PRN ×3 (11:07→22:50)
[2021-09-21 11:31] VITALS: BP 130/80
[2021-09-21 15:00] VITALS: BP 128/77
[2021-09-21] MEDS ORDERED: guaiFENesin/codeine phos 10ml UD oral syrup PO PRN (15:55)
[2021-09-21 18:00] VITALS: BP 145/78
--- NOTE | 2021-09-21 18:04 | NUR ---
patient c/o pain given Callahan 10mg with good effect. Noticed when norco scanned that EMAR said patient had received 4000 mg of tylenol. Discussed with pharmacist as on EMAr only said 1000mg administered, Pharmacist stated to go ahead and give Callahan since this was not an accurate total. certification technician reported HR was 160, patient had been up in bathroom , and was heading back to bed. rechecked 145, , now 126. patient requesting pain meds.
--- NOTE | 2021-09-21 18:20 | NUR ---
Patient in room PCU 3015. I have received report from Olga SMITH and had the opportunity to ask questions and assume patient care.
--- NOTE | 2021-09-21 18:32 | NUR ---
Georgie given for pain 11/19. report given to Cheryle SMITH
[2021-09-21] MEDS ORDERED: albuterol 2.5 MG/3 ML nebule NEB PRN (18:40)
[2021-09-21] MEDS ORDERED: ACET-2119 PO (19:26)
[2021-09-21] MEDS ORDERED: IBUP-2697 PO (19:26)
[2021-09-21] MEDS ORDERED: PER5325T PO (19:26)
[2021-09-21 22:00] VITALS: BP 140/82
[2021-09-22] MEDS: piperacillin/tazo 3.375gm/50ml 50 ML IV SCH ×3 (01:01→15:55)
[2021-09-22 02:00] VITALS: BP 131/79
[2021-09-22] MEDS: normal saline 1000ml 1,000 ML IV SCH ×3 (02:50→19:42)
[2021-09-22 06:00] VITALS: BP 121/66
--- NOTE | 2021-09-22 06:05 | NUR ---
reviewed STAFF SUBMARINE WARFARE OFFICER assessment and in agreement. Pt had requested occassional morphine in addition to norco in order to control pain.
--- NOTE | 2021-09-22 06:40 | NUR ---
Problems reprioritized. Patient report given, questions answered & plan of care reviewed with Norma SMITH.
--- NOTE | 2021-09-22 06:52 | NUR ---
Patient in room PCU 3015. I have received report from Cheryle SMITH and had the opportunity to ask questions and assume patient care.
[2021-09-22] MEDS: K and/or MAG REPLACEMENT MC SCH ×2 (08:00→19:40)
[2021-09-22] MEDS: docusate sod 100mg capsule PO SCH ×3 (08:00→19:40)
[2021-09-22 10:56] LABS: BASOPHILS # (AUTO) 0.1 X10'3 (0-0.2); BASOPHILS % (AUTO) 0.6 % (0-1); EOSINOPHILS % (AUTO) 0 % (0-6); HEMATOCRIT 30.2 % (42.0-52.0); HEMOGLOBIN 9.9 g/dl (14.0-17.9); LYMPHOCYTES # (AUTO) 1.1 X10'3 (1.1-4.8); LYMPHOCYTES % (AUTO) 7.9 % (21-51); MEAN CORPUSCULAR HEMOGLOBIN 28.5 PG (27.0-31.0); MEAN CORPUSCULAR HGB CONC 32.7 g/dL (33.0-36.5); MEAN CORPUSCULAR VOLUME 87.3 FL (78-98); MEAN PLATELET VOLUME 7.4 FL (7.4-10.4); MONOCYTES # (AUTO) 1.8 X10'3 (0-0.9); MONOCYTES % (AUTO) 13.4 % (2-12); NEUTROPHILS # (AUTO) 10.7 X10'3 (1.8-7.7); NEUTROPHILS % (AUTO) 78.1 % (42-75); PLATELET COUNT 335 X10'3 (140-440); RED BLOOD COUNT 3.46 X10'6 (4.70-6.10); RED CELL DISTRIBUTION WIDTH 17.8 % (11.5-14.5); WHITE BLOOD COUNT 13.8 X10'3 (4.5-11.0)
[2021-09-22 10:58] VITALS: BP 118/69
[2021-09-22 11:13] LABS: ALANINE AMINOTRANSFERASE 42 U/L (12-78); ALBUMIN 1.7 G/DL (3.4-5.0); ALBUMIN/GLOBULIN RATIO 0.3 (1.1-1.5); ALKALINE PHOSPHATASE 202 IU/L (46-116); ANION GAP 10 (8-16); ASPARTATE AMINO TRANSFERASE 91 U/L (10-37); BILIRUBIN,TOTAL 0.7 MG/DL (0.1-1.0); BLOOD UREA NITROGEN 8 MG/DL (7-18); BUN/CREATININE RATIO 9.5 (5.4-32.0); CALCIUM 8.5 MG/DL (8.5-10.1); CHLORIDE 102 MMOL/L (99-107); CREATININE 0.84 MG/DL (0.60-1.10); GLUCOSE 165 MG/DL (70-104); MAGNESIUM 1.7 MG/DL (1.5-2.4); POTASSIUM 3.9 MMOL/L (3.5-5.1); SODIUM 136 MMOL/L (135-145); TOTAL PROTEIN 7.9 G/DL (6.4-8.2); eGFR > 90 ML/MIN
[2021-09-22] MEDS: HYDROcodone/acetaminophen 10/325mg tab PO PRN ×2 (11:19→19:39)
--- NOTE | 2021-09-22 11:47 | NUR ---
Malnutrition consult: Pt reports 2-13 lb wt loss with decreased appetite per malnutrition risk screen with RN. Attempted visit with pt at bedside however pt being taken out of room. No visible fat or muscle wasting was appreciated during brief encounter. Current scaled wt is stable with recent scaled wt h/o 108.1 kg taken 04/29. Of note pt denied wt loss, N/V, diarrhea, or constipation per H&P. Pt on a regular diet, documented with 25-50% PO intake of first few meals. Pt with no documented edema. Pt currently lacks a minimum of two criteria for malnutrition though at a high risk d/t metastatic cancer. Noted pt with A1c 7.4% with no mention of DM in EMR, however pt with new onset DM with A1c 6.7% in January 2021 per physician notes that admit. Written DM education with RD contact information placed in patient's chart. Pt admit for sepsis. LBM 09/21. Will continue to follow closely and make recommendations as appropriate pending further trends in PO intake. Recommendations: 1) Continue regular diet 2) Monitor need for additional protein/ONS 3) Routine bowel care 4) Scaled weight this admit; subsequent weekly scaled weights Addendum: 09/22/21 at [address] Amended: Links added.
[2021-09-22 12:54] LABS: % IRON SATURATION 5 % (11-46); IRON 9 UG/DL (53-167); TOTAL IRON BINDING CAPACITY 168 UG/DL (259-388)
[2021-09-22] MEDS ORDERED: dextrose 50%-water 50ml dispensing syringe IV PRN ×2 (14:15)
[2021-09-22] MEDS ORDERED: MESSAGE TO PHARMACY PO ONE (14:15)
[2021-09-22] MEDS ORDERED: DEXTROSE 15 GM of carb/4 tabs (each vial/BOTTLE has 4 tablets) PO PRN ×2 (14:15)
[2021-09-22] MEDS ORDERED: insulin Lispro (HumaLOG) vial - multi-dose SQ SCH (14:15)
[2021-09-22] MEDS ORDERED: glucagon, human recombinant 1mg kit SUBCUT PRN (14:15)
[2021-09-22] MEDS ORDERED: ibuprofen 200mg tablet PO PRN (14:45)
[2021-09-22] MEDS ORDERED: oxyCODONE/APAP 5-325mg tablet PO PRN (14:45)
[2021-09-22] MEDS: iron sucrose complex injection 200 MG in normal saline 100ml IV soln 100 ML IV SCH (15:55)
[2021-09-22 18:00] VITALS: BP 113/58
--- NOTE | 2021-09-22 18:20 | NUR ---
Patient in room PCU 3015. I have received report from Norma SMITH and had the opportunity to ask questions and assume patient care.
[2021-09-22] MEDS: pregabalin 75mg capsule PO SCH (19:39)
[2021-09-22] MEDS ORDERED: insulin glargine (Lantus) pen - multi-dose SQ SCH (21:00)
[2021-09-22 22:00] VITALS: BP 109/61
[2021-09-23] MEDS: piperacillin/tazo 3.375gm/50ml 50 ML IV SCH ×2 (00:07→08:00)
[2021-09-23] MEDS: HYDROcodone/acetaminophen 10/325mg tab PO PRN ×3 (01:06→12:20)
[2021-09-23 02:00] VITALS: BP 111/69
--- NOTE | 2021-09-23 03:50 | NUR ---
AGREE WITH SOCIAL AND POLITICAL STUDIES PROFESSOR PHYSICAL ASSESSMENT CHARTED
[2021-09-23 06:00] VITALS: BP 112/69
--- NOTE | 2021-09-23 06:21 | NUR ---
Problems reprioritized. Patient report given, questions answered & plan of care reviewed with Karen SMITH.
--- NOTE | 2021-09-23 06:47 | NUR ---
Patient in room PCU 3015B. I have received report from SARAH ANGEL and had the opportunity to ask questions and assume patient care.
[2021-09-23 07:01] LABS: BASOPHILS % (AUTO) 0.2 % (0-1); EOSINOPHILS % (AUTO) 0.1 % (0-6); HEMATOCRIT 30.2 % (42.0-52.0); HEMOGLOBIN 9.8 g/dl (14.0-17.9); LYMPHOCYTES # (AUTO) 1.1 X10'3 (1.1-4.8); LYMPHOCYTES % (AUTO) 8.4 % (21-51); MEAN CORPUSCULAR HEMOGLOBIN 28.2 PG (27.0-31.0); MEAN CORPUSCULAR HGB CONC 32.3 g/dL (33.0-36.5); MEAN CORPUSCULAR VOLUME 87.5 FL (78-98); MEAN PLATELET VOLUME 7.7 FL (7.4-10.4); MONOCYTES # (AUTO) 1.5 X10'3 (0-0.9); MONOCYTES % (AUTO) 10.9 % (2-12); NEUTROPHILS # (AUTO) 10.8 X10'3 (1.8-7.7); NEUTROPHILS % (AUTO) 80.4 % (42-75); PLATELET COUNT 341 X10'3 (140-440); RED BLOOD COUNT 3.46 X10'6 (4.70-6.10); RED CELL DISTRIBUTION WIDTH 17.7 % (11.5-14.5); WHITE BLOOD COUNT 13.4 X10'3 (4.5-11.0)
[2021-09-23 07:38] LABS: ALANINE AMINOTRANSFERASE 36 U/L (12-78); ALBUMIN 1.5 G/DL (3.4-5.0); ALBUMIN/GLOBULIN RATIO 0.2 (1.1-1.5); ALKALINE PHOSPHATASE 199 IU/L (46-116); ANION GAP 10 (8-16); ASPARTATE AMINO TRANSFERASE 66 U/L (10-37); BILIRUBIN,TOTAL 0.7 MG/DL (0.1-1.0); BLOOD UREA NITROGEN 5 MG/DL (7-18); BUN/CREATININE RATIO 7.9 (5.4-32.0); CALCIUM 8.7 MG/DL (8.5-10.1); CHLORIDE 102 MMOL/L (99-107); CREATININE 0.63 MG/DL (0.60-1.10); GLUCOSE 94 MG/DL (70-104); MAGNESIUM 1.7 MG/DL (1.5-2.4); POTASSIUM 3.4 MMOL/L (3.5-5.1); SODIUM 137 MMOL/L (135-145); TOTAL CARBON DIOXIDE 24.7 MMOL/L (24-32); TOTAL PROTEIN 7.9 G/DL (6.4-8.2); eGFR > 90 ML/MIN
[2021-09-23] MEDS: pregabalin 75mg capsule PO SCH (07:52)
[2021-09-23] MEDS: docusate sod 100mg capsule PO SCH (07:53)
[2021-09-23] MEDS: iron sucrose complex injection 200 MG in normal saline 100ml IV soln 100 ML IV SCH (08:00)
[2021-09-23] MEDS: K and/or MAG REPLACEMENT MC SCH (08:00)
[2021-09-23] MEDS: normal saline 1000ml 1,000 ML IV SCH (08:10)
[2021-09-23 11:00] VITALS: BP 125/65
[2021-09-23] MEDS ORDERED: HYDR-3972 PO (11:41)
[2021-09-23] MEDS ORDERED: METF-1203 PO (11:41)
[2021-09-23] MEDS ORDERED: AMOX-580 PO (11:41)
[2021-09-23] MEDS ORDERED: POTA-207 PO (11:41)
[2021-09-23] MEDS ORDERED: LYR75C PO (11:41)
[2021-09-23] MEDS ORDERED: heparin sodium, porcine/PF 100unit/ml 5ML syringe IV ONE (14:00)
--- NOTE | 2021-09-23 14:22 | NUR ---
portacath deaccessed after flushing with NS and Heparin. clean dressing applied, no compiclitions.
--- NOTE | 2021-09-23 14:25 | NUR ---
PATIENT STABLE AND APPROPRIATE FOR DISCHARGE, IV REMOVED, TELE REMOVED, EDUCATION GIVEN, NEW MEDS E-SCRIPTED TO PREFERRED PHARMACY, ALL BELONGINGS SENT WITH PATIENT, PATIENT TAKEN TO LOBBY BY WHEELCHAIR TO AN AWAITING CAR WHERE WILL TAKE PATIENT HOME
== END 2021-09-23 14:25 | disposition home or self-care (01) | DRG 720 ==
LOC: ER 23:13 → ED HOLD 09-21 06:17 → PCU 3S 09-21 09:44
PROVIDERS: ADMIT Family Medicine; ATTEND Family Medicine
PROC: BW251ZZ Computerized Tomography (CT Scan) of Chest, Abdomen and Pelvis using Low Osmolar Contrast (ICD-10-PCS; principal; 2021-09-21)
PROC: BR201ZZ Computerized Tomography (CT Scan) of Cervical Spine using Low Osmolar Contrast (ICD-10-PCS; 2021-09-22)
PROC: BR291ZZ Computerized Tomography (CT Scan) of Lumbar Spine using Low Osmolar Contrast (ICD-10-PCS; 2021-09-22)
DX: A41.9 Sepsis, unspecified organism (principal); N17.9 Acute kidney failure, unspecified; C78.02 Secondary malignant neoplasm of left lung; C20 Malignant neoplasm of rectum; C78.7 Secondary malignant neoplasm of liver and intrahepatic bile duct; D50.9 Iron deficiency anemia, unspecified; D64.9 Anemia, unspecified; E11.9 Type 2 diabetes mellitus without complications; Z20.822 Contact with and (suspected) exposure to COVID-19; M54.16 Radiculopathy, lumbar region; E87.6 Hypokalemia; G89.29 Other chronic pain; M48.061 Spinal stenosis, lumbar region without neurogenic claudication; M54.30 Sciatica, unspecified side; Z79.84 Long term (current) use of oral hypoglycemic drugs; Z85.038 Personal history of other malignant neoplasm of large intestine; Z79.899 Other long term (current) drug therapy
CPT/HCPCS: 36415; 71045; 71260; 72126; 72129; 72132; 74177; 80053; 81003; 82948; 83036; 83540; 83550; 83605; 83735; 84145; 85007; 85025; 87040; 87081; 87811; 93005; 96361; 96374; 96375; 99285; A4421; A6258; A6402; G0378; J0131; J1170; J1642; J1756; J1815; J1885; J2270; J2405; J2543; J3490; J7030; Q9967